=== PATIENT | female | born 1995 | race Caucasian/White ===

== ENCOUNTER 2020-12-20 14:10 | Inpatient (IN) | payer BC ==
[2020-12-20] MEDS ORDERED: ACETAMINOPHEN TAB 325 MG TAB PO PRN (15:44)
[2020-12-20] MEDS ORDERED: NALOXONE 0.4 MG/ML 1 ML VIAL IV PRN (15:44)
[2020-12-20 16:18] LABS: Basophils % (A) 0 %; Eosinophils % (A) 0 %; HCT 33.1 % (34.0-46.0); HGB 11.3 gm/dL (11.4-16.0); Lymphocytes # (A) 0.2 k/uL (1.0-4.8); Lymphocytes % (A) 10 %; MCH 30.1 pg (25.0-35.0); MCV 88.5 fL (80.0-100.0); Mean Platelet Volume 6.8; Monocytes # (A) 0.1 k/uL (0-1.0); Monocytes % (A) 3 %; Neutrophils # (A) 1.6 k/uL (1.3-7.7); Neutrophils % (A) 84 %; Platelet Count 182 k/uL (150-450); RBC 3.74 m/uL (3.80-5.40); RDW 13.3 % (11.5-15.5); WBC 1.9 k/uL (3.8-10.6)
[2020-12-20 16:32] LABS: Appearance,Urine Clear (Clear); Bacteria,Urine Rare /hpf; Bilirubin,Urine Negative (Negative); Blood,Urine Small (Negative); Color,Urine Light Yellow; Glucose,Urine (UA) Negative (Negative); Ketones,Urine Negative (Negative); Leukocyte Esterase,Urine Negative (Negative); Nitrite,Urine Negative (Negative); PH, Urine 6.5 (5.0-8.0); Protein,Urine Negative (Negative); RBC,Urine 1 /hpf (0-5); Specific Gravity,Urine 1.006 (1.001-1.035); Squamous Epithelial Cell,Urine 1 /hpf (0-4); Urobilinogen,Urine <2.0 mg/dL (<2.0); WBC,Urine <1 /hpf (0-5)
[2020-12-20 16:32] LABS: ALT 93 U/L (4-34); AST 121 U/L (14-36); African American GFR (CKD) >90 (>60 ml/min/1.73 sqM); Albumin 3.1 g/dL (3.5-5.0); Alkaline Phosphatase 75 U/L (38-126); Amylase 128 U/L (30-110); Anion Gap 5 mmol/L; Blood Urea Nitrogen 15 mg/dL (7-17); C Reactive Protein 7.2 mg/L (<10.0); Calcium 8.5 mg/dL (8.4-10.2); Carbon Dioxide 26 mmol/L (22-30); Chloride 107 mmol/L (98-107); Creatine Kinase 337 U/L (30-135); Glucose 106 mg/dL (74-99); LDH 1258 U/L (313-618); Lipase 421 U/L (23-300); Magnesium 2.2 mg/dL (1.6-2.3); Non-African American GFR(CKD) >90 (>60 ml/min/1.73 sqM); Phosphorus 4.5 mg/dL (2.5-4.5); Potassium 4.1 mmol/L (3.5-5.1); Sodium 138 mmol/L (137-145); Total Bilirubin 0.4 mg/dL (0.2-1.3); Total Protein 6.3 g/dL (6.3-8.2)
--- NOTE | 2020-12-20 16:33 | XR ---
EXAMINATION TYPE: XR chest 2V DATE OF EXAM: 12/20/2020 COMPARISON: NONE HISTORY: Fever. 7 weeks. TECHNIQUE: Frontal and lateral views of the chest are obtained. FINDINGS: There is no focal air space opacity or pneumothorax seen. Suspect small to tiny unilateral pleural effusion on lateral view . The cardiac silhouette size is within normal limits. The osseou s structures are intact. IMPRESSION: No suspicious acute infiltrate. Small to tiny unilateral suspect a left-sided pleural ef fusion.
[2020-12-20 16:42] LABS: Amphetamine Screen,Urine Not Detected (NotDetected); Barbiturate Screen,Urine Not Detected (NotDetected); Benzodiazepines Screen,Urine Not Detected (NotDetected); Cocaine Screen,Urine Not Detected (NotDetected); Methadone Screen, Urine Not Detected (NotDetected); Opiate Screen,Urine Not Detected (NotDetected); Oxycodone Screen, Urine Not Detected (NotDetected); Phencyclidine Screen,Urine Not Detected (NotDetected); Tricyclic Antidepressant,Urine Not Detected (NotDetected); Urn Cannabinoid Scrn Not Detected (NotDetected)
[2020-12-20 17:03] LABS: Erythrocyte Sedimentation Rate 56 mm/hr (0-20)
--- NOTE | 2020-12-20 17:15 | HP ---
HISTORY AND PHYSICAL DATE OF SERVICE: 12/20/2020 CHIEF COMPLAINT: Fever. HISTORY OF PRESENT ILLNESS: This 25-year-old woman with a past history of no medical problems, being followed by Dr. Palafox in the outpatient setting, apparently had a section about 7 weeks ago at [facility]. The patient apparently had mostly elective section. Patient went home after 2 days, but subsequently the patient was noted to have some fever, rigors and chills which were most pronounced for the last 2 weeks. Patient had multiple ER visits at [facility] and was diagnosed with UTI. Patient was given Bactrim initially. Subsequently the patient was given Cipro without much relief, and Dr. Palafox discussed the case at length with me and the patient was directly admitted to [facility] for further evaluation and treatment. There is no history any headache, any loss of consciousness, seizures at this time. Patient has a significant rash on the face and anterior and posterior part of the body which is more pronounced during the fever. There is no history of any arthralgia. No history of any discharge per vagina or discharge from the breast. The patient has some vague abdominal pains at this time. PAST MEDICAL HISTORY: History of section, anxiety, depression. HOME MEDICATIONS: vitamins, ibuprofen, Tylenol, Zofran, Lexapro, BuSpar, Malinda. ALLERGIES: NONE. FAMILY HISTORY: History of testicular cancer in the family. SOCIAL HISTORY: No history of smoking. No history of alcohol intake. REVIEW OF SYSTEMS: ENT: No diminished hearing. No diminished vision. CARDIOVASCULAR SYSTEM: No angina, palpitations. RESPIRATORY SYSTEM: No cough, hemoptysis. GI: As mentioned earlier. : As mentioned earlier. NERVOUS SYSTEM: No numbness, weakness. ALLERGY/IMMUNOLOGY: No asthma, hayfever. MUSCULOSKELETAL: As mentioned earlier. HEMATOLOGY/ONCOLOGY: No history of anemia. ENDOCRINE: No history of diabetes, hypothyroidism. CONSTITUTIONAL: As mentioned earlier. DERMATOLOGY: Negative. RHEUMATOLOGY: Negative. PSYCHIATRY: As mentioned earlier. PHYSICAL EXAMINATION: Patient alert and oriented x3. Pulse 82, blood pressure 110/70, respiration 18, temperature 98.1, pulse ox 94% on room air. HEENT: Conjunctivae normal. NECK: No jugular venous distention. CARDIOVASCULAR SYSTEM: S1, S2 muffled. RESPIRATORY SYSTEM: Breath sounds diminished at the bases. No rhonchi. No crackles. ABDOMEN: Soft, non-tender. No mass palpable. LEGS: No edema. No swelling. NERVOUS SYSTEM: Higher functions as mentioned earlier. Moves all 4 limbs. No focal motor or sensory deficit. LYMPHATICS: No lymph node palpable in neck, axillae or groin. SKIN: Significant rash, malar rash on the right more than the left. Maculopapular rash on the upper part of the body also present. JOINTS: No active deforming arthropathy. LABS: Labs at this time are awaited. ASSESSMENT: 1. Prolonged fever for evaluation. 2. History of recent section. 3. anxiety and depression. 4. Significant rash. Rule out lupus erythematosus or collagen vascular disorders. 5. Rule out urinary tract infection. RECOMMENDATIONS AND DISCUSSION: In this 25-year-old woman who presented with multiple complex medical issues, we will monitor the patient closely. Symptomatic treatment will be provided. I would recommend cultures and CT scans of the abdomen and pelvis to rule out the possibility of any abscess. Otherwise, infectious disease evaluation. Prognosis is guarded because of multiple complex medical issues. Further recommendations to follow. DVT prophylaxis. Discussed with the patient, who understands and agrees. A copy of this dictation is being forwarded to Dr. Palafox, who is the primary physician. MMODL / IJN: [id number] /
[2020-12-20 17:16] LABS: INR 0.9 (<1.2); Prothrombin Time 9.8 sec (9.0-12.0)
[2020-12-20] MEDS: SODIUM CHLORIDE 0.9% 1,000 ML IV SCH (17:35)
[2020-12-20] MEDS: IOPAMIDOL CONTRAST (ORAL USE) VIAL PO PRN ×2 (17:35→18:31)
--- NOTE | 2020-12-20 17:57 | US ---
EXAMINATION TYPE: US venous doppler duplex LE DATE OF EXAM: 12/20/2020 5:39 PM COMPARISON: NONE CLINICAL HISTORY: dvt. R/O DVT. Patient has weakness in bilateral legs. No hx of DVT. Patient does no t take blood thinners. SIDE PERFORMED: Bilateral TECHNIQUE: The lower extremity deep venous system is examined utilizing real time linear array sonog daiana with graded compression, doppler sonography and color-flow sonography. VESSELS IMAGED: Common Femoral Vein Deep Femoral Vein Greater Saphenous Vein * Femoral Vein Popliteal Vein Small Saphenous Vein * Proximal Calf Veins (* superficial vessels) Right Leg: No evidence of DVT in veins imaged at this time from prox calf veins to CFV/GSV. Slightly limited visibility of right mid femoral vein due to edema. Left Leg: No evidence of DVT in veins imaged at this time from prox calf veins to CFV/GSV. IMPRESSION: No evidence of deep vein thrombosis in both legs.
--- NOTE | 2020-12-20 19:45 | CT ---
EXAMINATION TYPE: CT angio chest DATE OF EXAM: 12/20/2020 COMPARISON: None HISTORY: Elevated d-dimer, post fever CT DLP: 329.77 mGycm Automated exposure control for dose reduction was used. CONTRAST: Performed with IV Contrast, patient injected with 100 mL of Isovue 370. Images were obtained from the thoracic inlet to the diaphragm with IV contrast and 3-D post processed images. Heart size is normal. There is no pericardial effusion. There is mild left pleural effusion. There is some coarsening of the interstitial markings in the lower lobes. There is mild subsegmental atelectasis left lung base. There is no evidence of a pulmonary mass. There is no mediastinal adenopathy. There are no hilar masses. There is normal contrast opacification of the pulmonary arteries. There are no filling defects. Thoracic aorta is intact. There is no aneur ysm or dissection. The bony thorax is intact. Sternum is intact. IMPRESSION: No evidence of pulmonary embolism. Mild left pleural effusion and left lower lobe interstitial infiltrate and atelectasis.
--- NOTE | 2020-12-20 19:48 | CT ---
EXAMINATION TYPE: CT brain wo con DATE OF EXAM: 12/20/2020 COMPARISON: None HISTORY: Elevated d-dimer, post fever CT DLP: 1233 mGycm Automated exposure control for dose reduction was used. Ventricles have normal size. There is no mass effect nor midline shift. There is no sign of intracran ial hemorrhage. There is no evidence of cerebral edema. The calvarium is intact. IMPRESSION: Negative unenhanced head CT scan.
--- NOTE | 2020-12-20 20:01 | CT ---
EXAMINATION TYPE: CT abdomen pelvis w con DATE OF EXAM: 12/20/2020 COMPARISON: None HISTORY: Elevated d-dimer, post fever CT DLP: 1273.98 mGycm Automated exposure control for dose reduction was used. CONTRAST: Performed with IV Contrast, patient injected with 100 mL of Isovue 370. Images obtained from the diaphragm to the floor the pelvis with oral and IV contrast. Lung bases are clear of consolidation. There is small left pleural effusion. There is some interstiti al infiltrate and atelectasis left lung base. Liver spleen stomach pancreas gallbladder appear normal. Bile ducts are not dilated. There is no adrenal mass. Kidneys show satisfactory contrast opacification. There is no hydronephrosi s. Delayed images show normal renal excretion. There is very minimal stranding around the right kidne y. There is no evidence of a renal mass. There is no retroperitoneal adenopathy. Ureters are not dila arnol. Bladder distends smoothly. There is no inguinal hernia. There is very small amount of free fluid in t he pelvis. There is no evidence of a pelvic mass. There is no mesenteric edema. There is no ascites o r free air. There is no sign of a bowel obstruction. Appendix is not definitely seen. There is no sig n of thickened appendix. IMPRESSION: Small left pleural effusion with left basilar interstitial infiltrate and atelectasis. Small amount of free fluid with low attenuation in the cul-de-sac. Appendix not seen. No sign of thickened appendix. There is some very minimal density around the lower pole of the right kidney. Kidneys show fairly nor mal enhancement. Clinical significance is not clear. Mild pyelonephritis is possible.
[2020-12-20] MEDS: busPIRone HCl 5 MG TAB PO SCH (21:18)
[2020-12-20] MEDS: HEPARIN SODIUM,PORCINE 5,000 UNIT/ML 1 ML VIAL SQ SCH (21:20)
[2020-12-20] MEDS: PANTOPRAZOLE 40 MG/10 ML VIAL IVP SCH (21:21)
--- NOTE | 2020-12-20 23:03 | CONS ---
CONSULTATION DATE OF SERVICE: 12/20/2020 REASON FOR CONSULTATION: Fever. HISTORY OF PRESENT ILLNESS: The patient is a 25-year-old female who is status post about 7 weeks ago at [facility]. The patient apparently did well; however, 2 weeks ago the patient started having fever with chills, for which the patient went to [facility]. The patient was diagnosed with a UTI and has been treated with Bactrim DS; however, the patient was unable to keep it, as she did have significant nausea and vomiting with it. Subsequently the patient went back to the ER. At this time the patient was switched over to oral Cipro. The patient seemed to have persistent symptoms and has been mostly not feeling well, fever, body aches. No significant URI symptoms. No chest pain or shortness of breath with minimal cough. No sputum production. Denies any abdominal pain and no diarrhea. The patient subsequently has been admitted to the hospital by request of the primary care physician for further workup. The patient has been afebrile since the patient has been admitted to the hospital. She is currently 99% on room air. The patient did have leukopenia and lymphopenia. D-dimer was elevated. Liver enzymes were elevated as well as LDH. CRP was normal. Amylase and lipase have been elevated. Urine came back negative. Urine drug screen was negative. The patient did have a CT angiogram of the chest that was negative for PE. It did show mild left pleural effusion and left lower lobe interstitial infiltrate and atelectasis. The patient also had a CT of abdomen and pelvis showing small pleural effusion, left basilar atelectasis, small amount of free fluid with the patient has been admitted to the hospital. Infectious Disease was consulted for further management regarding her fever. REVIEW OF SYSTEMS: Positive points have been mentioned in the HPI. Rest of the systems are negative. PAST MEDICAL HISTORY: Anxiety, depression. PAST SURGICAL HISTORY: . SOCIAL HISTORY: The patient denies smoking, drinking or drug use. FAMILY HISTORY: Testicular cancer in the family. ALLERGIES: NO KNOWN DRUG ALLERGIES. MEDICATIONS: The patient is currently on Tylenol, BuSpar, Lexapro, heparin, Narcan, Protonix. PHYSICAL EXAMINATION: On examination, her blood pressure is 121/72 with a pulse of 97, temperature 98.4. She is 99% on room air. General description is a young female lying in bed in no distress. No tachypnea or accessory muscle of respiration use. HEENT: Examination shows slight pallor. No scleral icterus. Oral mucous membrane is moist. NECK: Trachea is central. No thyromegaly. LUNGS: Unlabored breathing. Clear to auscultation anteriorly. No wheeze or crackle. HEART: S1, S2. Regular rate and rhythm. ABDOMEN: Soft. No tenderness. No guarding or rigidity. No CVA tenderness. EXTREMITIES: No edema of the feet. SKIN EXAMINATION: No rash or mass palpable. Neurologically the patient is awake, alert, oriented x3. Mood and affect normal. LABS: Hemoglobin is 11.3, white count 1.9. Sedimentation rate of 56. D-dimer was elevated. Liver enzymes are elevated as well as inflammatory markers, though CRP is normal. Amylase and lipase slightly elevated. DIAGNOSTIC IMPRESSION AND PLAN: Patient admitted to hospital with fever and weakness, and this patient has been treated in the outpatient setting for a urinary tract infection with Bactrim followed by [facility], with persistent GI symptoms in this patient currently with no intraabdominal abnormality as per CT of abdomen and pelvis. The patient does not have any tenderness. She did have some evidence of left lower lobe infiltrate/atelectasis with concern for possible viral versus bacterial pneumonia. PLAN: 1. We will check influenza A/B PCR as well as coronavirus PCR. 2. Empirically add Levaquin 750 mg p.o. daily. 3. We will follow her clinical condition and culture to further adjust medication if needed. Thank you for this consultation. Will follow this patient along with you. MMODL / IJN: [id number] /
[2020-12-21 01:49] LABS: Anti-DNA, DS unit >300.0 IU/mL; Anti-Smith Ab Interp NEGATIVE (NEGATIVE); DNA Double-Stranded POSITIVE (NEGATIVE)
[2020-12-21 06:26] LABS: Rheumatoid Factor, Qnt 6 IU/mL (0-15)
[2020-12-21 06:37] LABS: Ferritin 537.7 ng/mL (10.0-291.0)
--- NOTE | 2020-12-21 07:34 | US ---
EXAMINATION TYPE: US gallbladder DATE OF EXAM: 12/21/2020 COMPARISON: NONE CLINICAL HISTORY: cholecystitis. EXAM MEASUREMENTS: Liver Length: 13.8 cm Gallbladder Wall: 0.2 cm CBD: 0.4 cm Right Kidney: 11.8 x 4.5 x 6.1 cm Pancreas: wnl Liver: wnl Gallbladder: No stones seen Evidence for sonographic Sherman's sign: Yes CBD: wnl Right Kidney: No hydronephrosis or masses seen IMPRESSION: No distinct abnormality seen.
[2020-12-21 07:59] LABS: Basophils % (A) 0 %; Eosinophils % (A) 1 %; HCT 32.7 % (34.0-46.0); HGB 11.1 gm/dL (11.4-16.0); Lymphocytes # (A) 0.2 k/uL (1.0-4.8); Lymphocytes % (A) 9 %; MCH 29.8 pg (25.0-35.0); MCHC 33.9 g/dL (31.0-37.0); Mean Platelet Volume 6.7; Monocytes # (A) 0.1 k/uL (0-1.0); Monocytes % (A) 4 %; Neutrophils % (A) 85 %; Platelet Count 170 k/uL (150-450); RBC 3.71 m/uL (3.80-5.40); RDW 13.4 % (11.5-15.5); WBC 2.4 k/uL (3.8-10.6)
[2020-12-21] MEDS: PRENATAL VIT-IRON-FOLIC ACID 1 EACH CAP PO SCH (07:59)
[2020-12-21] MEDS: busPIRone HCl 5 MG TAB PO SCH ×2 (07:59→20:29)
[2020-12-21] MEDS: ESCITALOPRAM 5 MG TAB PO SCH (07:59)
[2020-12-21] MEDS: HEPARIN SODIUM,PORCINE 5,000 UNIT/ML 1 ML VIAL SQ SCH ×2 (07:59→20:30)
[2020-12-21] MEDS: PANTOPRAZOLE 40 MG/10 ML VIAL IVP SCH ×2 (08:00→20:30)
[2020-12-21 08:21] LABS: African American GFR (CKD) >90 (>60 ml/min/1.73 sqM); Amylase 127 U/L (30-110); Anion Gap 3 mmol/L; Blood Urea Nitrogen 13 mg/dL (7-17); Calcium 8.2 mg/dL (8.4-10.2); Carbon Dioxide 26 mmol/L (22-30); Chloride 107 mmol/L (98-107); Cholesterol 96 mg/dL (<200); Glucose 106 mg/dL (74-99); HDL Cholesterol 25 mg/dL (40-60); LDL Cholesterol,Calculated 35 mg/dL (0-99); Lipase 470 U/L (23-300); Non-African American GFR(CKD) >90 (>60 ml/min/1.73 sqM); Potassium 4.4 mmol/L (3.5-5.1); Sodium 136 mmol/L (137-145); Triglycerides 180 mg/dL (<150)
[2020-12-21 08:53] LABS: Albumin 2.8 g/dL (3.5-5.0); Bilirubin, Delta 0.3 mg/dL (0.0-0.2); Bilirubin,Unconjugated 0.2 mg/dL (0.0-1.1); Total Bilirubin 0.5 mg/dL (0.2-1.3); Total Protein 5.8 g/dL (6.3-8.2)
[2020-12-21] MEDS: ONDANSETRON 4 MG/2 ML VIAL IVP PRN ×2 (10:35→16:30)
--- NOTE | 2020-12-21 12:00 | ECHOF ---
Referral Reason: MEASUREMENTS -------- HEIGHT: 160.0 cm WEIGHT: 79.8 kg BP: RVIDd: 2.4 cm (< 3.3) IVSd: 0.9 cm (0.6 - 1.1) LVIDd: 4.7 cm (3.9 - 5.3) LVPWd: 0.9 cm (0.6 - 1.1) IVSs: 1.4 cm LVIDs: 3.1 cm LVPWs: 1.5 cm LAESV Index (A-L): 23.68 ml/m Ao Diam: 2.4 cm (2.0 - 3.7) AV Cusp: 1.8 cm (1.5 - 2.6) LA Diam: 2.8 cm (2.7 - 3.8) MV EXCURSION: 18.450 mm (> 18.000) MV EF SLOPE: 92 mm/s (70 - 150) EPSS: 0.4 cm MV E Jose: 0.91 m/s MV DecT: 143 ms MV A Jose: 0.62 m/s MV E/A Ratio: 1.47 RAP: 5.00 mmHg RVSP: 23.55 mmHg FINDINGS -------- This was a technically good study. The left ventricular size is normal. Left ventricular wall thickness is normal. Overall left vent ricular systolic function is low-normal with, an EF between 50 - 55 %. The diastolic filling patter n is normal for the age of the patient 11.18. The right ventricle is normal in size. The left atrial size is normal. Normal LA size by volume 22+/-6 ml/m2. The right atrial size is normal. Interatrial and interventricular septum intact. The aortic valve is trileaflet and appears structurally normal. The mitral valve is normal. Mild mitral regurgitation is present. The tricuspid valve appears structurally normal. Trace tricuspid regurgitation present. Right josue tricular systolic pressure is normal at < 35 mmHg. There is no pulmonic regurgitation present. The aortic root size is normal. Normal inferior vena cava with normal inspiratory collapse consistent with estimated right atrial pre ssure of 5 mmHg. There is a trivial pericardial effusion present. CONCLUSIONS -------- 1. The left ventricular size is normal. 2. Left ventricular wall thickness is normal. 3. Overall left ventricular systolic function is low-normal with, an EF between 50 - 55 %. 4. The diastolic filling pattern is normal for the age of the patient 11.18 5. Mild mitral regurgitation is present. 6. Trace tricuspid regurgitation present. 7. There is a trivial pericardial effusion present. PRINCIPAL PROGRAMMER: Cande Peterson RDCS
[2020-12-21] MEDS: SODIUM CHLORIDE 0.9% 1,000 ML IV SCH ×2 (13:12→20:29)
--- NOTE | 2020-12-21 13:24 | PN ---
PROGRESS NOTE DATE OF SERVICE: 12/21/2020 This 25-year-old woman who was admitted with fever in post is being closely monitored at this time. The patient had extensive evaluation including CAT scan of the brain, chest CTA, which showed only small left pleural effusion with left bases interstitial infiltrate or atelectasis. The patient also had features of pancreatitis. As far as her labs are concerned, the patient had inflammatory markers and as well as positive SANIA and as well as double-stranded DNA, anti-[place] antibody was only 0.6, anti DNA antibody was more than 300. Influenza is negative. PAST MEDICAL HISTORY: Reviewed. REVIEW OF SYSTEMS: CARDIOVASCULAR SYSTEM: No angina. RESPIRATORY SYSTEM: As mentioned earlier. GI: As mentioned earlier. : No dysuria. NERVOUS SYSTEM: No numbness or weakness. CURRENT MEDICATIONS: Current medications are reviewed and include: Tylenol. BuSpar, Lexapro, heparin, vitamins, Narcan, Zofran, Protonix. PHYSICAL EXAMINATION: The patient is , Pulse 94, blood pressure 114/74, respirations 16, temperature 98.2, pulse ox 94% on room air. HEENT: Conjunctivae normal. NECK: No jugular venous distention. CARDIOVASCULAR: S1, S2 muffled. RESPIRATORY: Breath sounds diminished at the bases. A few scattered rhonchi and crackles. ABDOMEN: Soft. Mild diffuse discomfort on palpation. LEGS: No edema, no swelling. NERVOUS SYSTEM: No focal deficits. LABS: WBC 2.4, hemoglobin 11.1, and lymphocytes 0.2. Sodium is 136. Other labs are noted. ASSESSMENT: 1. Fever along with possible lupus erythematosus. 2. History of recent section. 3. Acute pancreatitis. 4. Neutropenia and leukopenia. 5. Anemia, normocytic anemia of chronic disease. 6. Hyponatremia. 7. Elevated AST, ALT, acute hepatitis of undetermined etiology. 8. Elevated LDH and creatine kinase. 9. Mild hypoalbuminemia. 10.Elevated amylase and lipase. 11.Elevated procalcitonin. 12.FULL CODE. RECOMMENDATIONS AND DISCUSSION: This 25-year-old woman presented with multiple complex medical issues, we will monitor the patient closely, continue the current medications, continue symptomatic treatment. I recommend continue with empiric antibiotics. Cultures are pending at this time. I also recommend monitor the amylase and lipase closely and also gastroenterology consultation. I would also recommend IgG subclass and symptomatic treatment. Continue with Protonix and as well as Rheumatology consultation with Dr. Menendez. Guarded prognosis. Further recommendations to follow. MMODL / IJN: [id number] /
--- NOTE | 2020-12-21 15:24 | PN ---
PROGRESS NOTE DATE OF SERVICE: 12/21/2020 REASON FOR FOLLOWUP: Fever. INTERVAL HISTORY: The patient is currently afebrile. No fever has been recorded since admission. The patient is breathing comfortably apparently on room air. The patient denies having any chest pain or shortness of breath or cough. No nausea, no vomiting. No abdominal pain, no diarrhea. PHYSICAL EXAMINATION: Blood pressure 114/74 with pulse of 94, temperature 98.2. General description is a young female lying in bed in no distress. HEENT: Examination shows slight pallor. No scleral icterus. Oral mucous membrane is dry. NECK: Trachea central. No thyromegaly. LUNGS: Unlabored breathing, clear to auscultation anteriorly. HEART: S1, S2. Regular rate and rhythm. ABDOMEN: Soft, no tenderness EXTREMITIES: No edema of feet. LABS: Hemoglobin 11.1, white count 2.4. BUN of 13, creatinine 0.80. Influenza and barrera PCR have been negative. SANIA screen was positive. Urine drug screen was negative. DIAGNOSTIC IMPRESSION AND PLAN: Patient admitted to the hospital with fever; however, no fever has been recorded. The patient did have extensive workup including CT of abdomen and pelvis, CT angiogram of the chest and ultrasound of the abdomen, all of them have been negative. The patient has no fever. Culture negative. Currently managed off antibiotic therapy. Continue with supportive care. MMODL / IJN: [id number] /
[2020-12-21 16:04] LABS: ANA Pattern Homogeneous
--- NOTE | 2020-12-21 17:51 | CONS ---
CONSULTATION DATE OF DICTATION: 12/21/2020 REASON FOR CONSULTATION: Elevated lipase. HISTORY OF PRESENT ILLNESS: The patient is a 25-year-old pleasant white female who is approximately 8 weeks' . She was admitted to the hospital because of low-grade fever and chills on and off for the last 3-4 weeks' duration. Symptoms continued to progressively get worse. She went to the emergency room at [facility] and was diagnosed with UTI and was treated initially with Bactrim and subsequently with Levaquin and subsequently with Cipro, despite which she continued to remain symptomatic. She went and saw Dr. Palafox on an outpatient basis and was directly admitted to [facility] for further evaluation. At the time of admission to the hospital she was noted to have mild elevation of lipase, and hence we are consulted for possible pancreatitis. The patient, however, denies any abdominal pain. She has occasional left lower quadrant abdominal pain on and off for the last several weeks' duration. She reports no nausea, vomiting. No prior history of pancreatitis in the past. No history of alcohol use. She continues to have low-grade fever. She noticed some malar rash on her face about a week ago. She also has been complaining of some arthralgias in the upper extremities. Overall fatigue, weakness, tiredness, but no significant weight loss. PAST MEDICAL HISTORY: Significant for anxiety and depression. MEDICATIONS: Medications at home include vitamins, ibuprofen, Tylenol, Zofran, Lexapro, BuSpar. ALLERGIES: NONE. SOCIAL HISTORY: No smoking. No alcohol use. FAMILY HISTORY: Grandmother had acute pancreatitis. REVIEW OF SYSTEMS: CARDIOPULMONARY: No chest pain or shortness of breath. GENITOURINARY: No dysuria. No hematuria. MUSCULOSKELETAL: Some arthralgias and myalgias as described above. CONSTITUTIONAL: Fatigue and weakness. No weight loss. Low-grade fever. NEUROLOGY: Unremarkable. PSYCHIATRY: History of anxiety and depression. ENDOCRINE: Unremarkable. HEMATOLOGY: Unremarkable. DERMATOLOGY: Unremarkable. PHYSICAL EXAMINATION: She appears comfortable. No apparent distress. Vital signs are stable. Blood pressure is 112/82, pulse rate 86 and afebrile. HEENT examination unremarkable. Conjunctivae pink. Sclerae anicteric. Oral cavity no lesions. NECK: No JVD or lymph node enlargement. CHEST: Clear to auscultation. HEART: Regular rate and rhythm. ABDOMEN: Soft. It was non-tender, non-distended. Bowel sounds are positive. No organomegaly. EXTREMITIES: No pedal edema. SKIN: Slight malar rash on the face. NEUROLOGIC: Alert and oriented x3. No focal deficits. LABS: Lab done at the time of admission to the hospital showed WBC 1.9, hemoglobin 11.3, platelets normal at 182. Today repeat WBC is 2.4, hemoglobin 11.1. PT and INR within normal limits. Basic metabolic panel is normal. BUN and creatinine are normal. Ferritin is 537. AST and ALT are 121 and 93, respectively. T-bilirubin and alkaline phosphatase are within normal limits. Amylase is 128 and lipase is 421. Repeat labs today: AST and ALT are 140 and 100, respectively. T-bilirubin and alkaline phosphatase are normal. Lipase is 470. Amylase is 127. CRP 7.2. SANIA positive. Coronavirus PCR is negative. IMPRESSION: This is a lady who presented with low-grade fever for the last few weeks' duration associated with some fatigue, weakness, arthralgias, not feeling well since her C- section about 7 weeks ago. She is noted to have mild elevation of lipase but clinically no evidence of pancreatitis. She did have a CT of the abdomen and pelvis done in the ER that showed normal-appearing pancreas. There is evidence of some small pleural effusion. Gallbladder appeared normal. Ultrasound also was done. Ultrasound of the gallbladder showed no evidence of stones, no biliary ductal dilation. Liver appears to be within normal limits. She is also noted to have mild elevation of serum transaminases and was noted to have a positive SANIA. She developed some malar rash about 2 weeks ago on her face. The elevation of lipase is most likely nonspecific in nature, and clinically no evidence of acute pancreatitis based on the clinical signs and symptoms and imaging studies. Possibility of connective tissue disorder needs to be considered. In regard to the elevated serum transaminases, we will obtain hepatitis serologies for A, B and C. we will monitor them closely. RECOMMENDATIONS: 1. Agree with rheumatology consultation with Dr. Menendez. 2. Will obtain hepatitis serologies for A, B and C. 3. Monitor LFTs closely. 4. Continue with symptomatic and supportive care. 5. Will follow with you closely. Thank you for this consultation. MMODL / JUSTAN: [id number] /
[2020-12-22] MEDS: SODIUM CHLORIDE 0.9% 1,000 ML IV SCH ×3 (01:43→14:20)
[2020-12-22 03:32] LABS: Hepatitis A Antibody IgM Non-Reactive (Non-Reactive); Hepatitis B Core IgM Non-Reactive (Non-Reactive); Hepatitis B Surface Antigen Non-Reactive (Non-Reactive); Hepatitis C IgG Antibody Non-Reactive (Non-Reactive)
[2020-12-22 05:41] LABS: Basophils % (A) 0 %; Eosinophils % (A) 0 %; HCT 30.9 % (34.0-46.0); HGB 10.5 gm/dL (11.4-16.0); Lymphocytes # (A) 0.3 k/uL (1.0-4.8); Lymphocytes % (A) 16 %; MCH 30.2 pg (25.0-35.0); MCHC 33.9 g/dL (31.0-37.0); MCV 89.2 fL (80.0-100.0); Mean Platelet Volume 6.8; Monocytes # (A) 0.1 k/uL (0-1.0); Monocytes % (A) 3 %; Neutrophils # (A) 1.3 k/uL (1.3-7.7); Neutrophils % (A) 78 %; Platelet Count 161 k/uL (150-450); RBC 3.46 m/uL (3.80-5.40); RDW 13.7 % (11.5-15.5); WBC 1.6 k/uL (3.8-10.6)
[2020-12-22 05:53] LABS: African American GFR (CKD) >90 (>60 ml/min/1.73 sqM); Amylase 139 U/L (30-110); Anion Gap 4 mmol/L; Blood Urea Nitrogen 13 mg/dL (7-17); Calcium 7.6 mg/dL (8.4-10.2); Carbon Dioxide 24 mmol/L (22-30); Chloride 110 mmol/L (98-107); Glucose 87 mg/dL (74-99); Lipase 514 U/L (23-300); Non-African American GFR(CKD) >90 (>60 ml/min/1.73 sqM); Potassium 4.2 mmol/L (3.5-5.1); Sodium 138 mmol/L (137-145)
[2020-12-22] MEDS: ONDANSETRON 4 MG/2 ML VIAL IVP PRN ×2 (06:24→19:39)
[2020-12-22] MEDS: ESCITALOPRAM 5 MG TAB PO SCH (08:18)
[2020-12-22] MEDS: PRENATAL VIT-IRON-FOLIC ACID 1 EACH CAP PO SCH (08:18)
[2020-12-22] MEDS: busPIRone HCl 5 MG TAB PO SCH ×2 (08:19→20:32)
[2020-12-22] MEDS: PANTOPRAZOLE 40 MG/10 ML VIAL IVP SCH ×2 (08:19→20:32)
[2020-12-22] MEDS: HEPARIN SODIUM,PORCINE 5,000 UNIT/ML 1 ML VIAL SQ SCH ×2 (10:43→20:32)
--- NOTE | 2020-12-22 18:25 | PN ---
PROGRESS NOTE DATE OF SERVICE: 12/22/2020 This 25 -year-old woman admitted with recurrent fever and , is being evaluated for the cause of fever. The cultures are negative so far. The patient also had features of acute pancreatitis. Patient had some mild rash. SANIA was extremely elevated and the possibility of lupus or disorder is being considered. Anti DNA is positive, but anti [place] antibody is negative and Dr. Menendez's evaluation in progress. The patient being closely monitored. Ultrasound of the abdomen showed no acute abnormalities. Patient being followed by Dr. Palafox in the outpatient setting. Past medical history is reviewed. REVIEW OF SYSTEMS: CARDIOVASCULAR SYSTEM: No angina. RESPIRATION as mentioned earlier. GI: As mentioned earlier. : No dysuria. NERVOUS SYSTEM: No numbness or weakness. CURRENT MEDICATIONS: Reviewed and include: Tylenol. BuSpar, Lexapro, heparin, Zofran and Protonix. PHYSICAL EXAM: Patient is alert, oriented x2. Pulse is 90. Blood pressure 116/72, respiration 18, temperature 98 degrees, pulse ox 98% on room air. HEENT: Conjunctivae normal. NECK: No JVD. CARDIOVASCULAR: S1, S2 muffled. RESPIRATORY SYSTEM: Breath sounds diminished at the bases. No rhonchi. No crackles. ABDOMEN: Soft, nontender. No mass palpable. LEGS are no edema. No swelling. NERVOUS SYSTEM: No focal deficits. LABS: WBC 11.3, hemoglobin 10.5, sodium 138, potassium 4.2, amylase 139, lipase is 514. ASSESSMENT: 1. Fever along with rash with possibly lupus erythematosus. 2. History of recent section. 3. Possible acute pancreatitis. 4. Neutropenia and leukopenia. 5. Anemia, normocytic anemia of chronic disease. 6. Hyponatremia. 7. Elevated AST/ALT, acute hepatitis of undetermined etiology. 8. Elevated LDH and creatinine kinase. 9. Mild hypoalbuminemia. 10.Elevated amylase lipase. 11.Elevated procalcitonin. 12.FULL CODE. RECOMMENDATIONS AND DISCUSSION: Recommend to continue current medications, and await dermatology evaluation. Repeat labs. I would repeat amylase, lipase, IgG subclass also requested. Guarded prognosis because of multiple complex medical issues. Further recommendations to follow. MMODL / IJN: [id number] / SHAE
--- NOTE | 2020-12-22 19:45 | PN ---
PROGRESS NOTE DATE OF SERVICE: 12/22/2020 REASON FOR FOLLOWUP: Fever. INTERVAL HISTORY: The patient is currently afebrile. The patient is breathing comfortably. Denies having any chest pain or shortness of breath. Minimal cough. No nausea. No abdominal pain or diarrhea. PHYSICAL EXAMINATION: Blood pressure 116/72 with a pulse of 90, temperature 98. She is 95% on room air. General description is a middle-aged female lying in bed in no distress. Respiratory system: Unlabored breathing, clear to auscultation anteriorly. Heart S1, S2. Regular rate and rhythm. Abdomen soft, no tenderness. LABS: Hemoglobin is 10.5, white count 8.6, BUN of 13, creatinine 0.84. DIAGNOSTIC IMPRESSION AND PLAN: Patient admitted to the hospital with fever with recent outpatient treatment for urinary tract infection with Cipro and Bactrim. However, urine has been negative. Culture has been negative and the patient has been managed and observed closely off antibiotic therapy. MMODL / IJN: [id number] /
[2020-12-22] MEDS ORDERED: IBUPROFEN 600 MG TAB PO PRN (21:43)
[2020-12-23] MEDS: ONDANSETRON 4 MG/2 ML VIAL IVP PRN (02:08)
[2020-12-23] MEDS: SODIUM CHLORIDE 0.9% 1,000 ML IV SCH ×2 (05:30→23:47)
[2020-12-23 05:46] LABS: Basophils % (A) 0 %; Eosinophils % (A) 0 %; HCT 31.7 % (34.0-46.0); HGB 10.7 gm/dL (11.4-16.0); Lymphocytes # (A) 0.2 k/uL (1.0-4.8); Lymphocytes % (A) 13 %; MCH 30.1 pg (25.0-35.0); MCHC 33.8 g/dL (31.0-37.0); Mean Platelet Volume 6.7; Monocytes # (A) 0.1 k/uL (0-1.0); Monocytes % (A) 4 %; Neutrophils # (A) 1.4 k/uL (1.3-7.7); Neutrophils % (A) 81 %; Platelet Count 140 k/uL (150-450); RBC 3.56 m/uL (3.80-5.40); RDW 13.6 % (11.5-15.5); WBC 1.7 k/uL (3.8-10.6)
[2020-12-23] MEDS ORDERED: METOCLOPRAMIDE 5 MG/ML 2 ML VIAL IVP STA (05:54)
[2020-12-23 05:56] LABS: African American GFR (CKD) >90 (>60 ml/min/1.73 sqM); Amylase 167 U/L (30-110); Anion Gap 0 mmol/L; Blood Urea Nitrogen 13 mg/dL (7-17); Calcium 7.9 mg/dL (8.4-10.2); Carbon Dioxide 25 mmol/L (22-30); Chloride 112 mmol/L (98-107); Glucose 93 mg/dL (74-99); Lipase 635 U/L (23-300); Non-African American GFR(CKD) >90 (>60 ml/min/1.73 sqM); Potassium 4.2 mmol/L (3.5-5.1); Sodium 137 mmol/L (137-145)
[2020-12-23] MEDS: PANTOPRAZOLE 40 MG/10 ML VIAL IVP SCH ×2 (08:02→20:52)
[2020-12-23] MEDS: busPIRone HCl 5 MG TAB PO SCH ×2 (09:32→20:52)
[2020-12-23] MEDS: ESCITALOPRAM 5 MG TAB PO SCH (09:32)
[2020-12-23] MEDS: PRENATAL VIT-IRON-FOLIC ACID 1 EACH CAP PO SCH (09:32)
--- NOTE | 2020-12-23 09:35 | P.PN ---
Subjective Progress Note Date: 12/22/20 Principal diagnosis: Elevated liver enzymes Patient is seen lying in bed reporting any further vomiting. No abdominal pain and asking for diet. Objective - Vital Signs Vital signs: Vital Signs Temp 98.4 F 12/22/20 08:14 Pulse 89 12/22/20 08:14 Resp 18 12/22/20 08:14 BP 109/74 12/22/20 08:14 Pulse Ox 95 12/22/20 08:14 Intake & Output 12/21/20 12/22/20 12/22/20 18:59 06:59 18:59 Intake Total 2069 1999 Output Total 20 Balance 2049 1999 Intake: Intake, IV Titration 1050 2000 Amount Sodium Chloride 0.9% 1, 1050 1999 000 ml @ 150 mls/hr IV . Q6H40M [facility] Rx#:[id number] Oral 1020 Output: Emesis 20 Other: # Voids 2 3 1 # Bowel Movements 3 - Exam On physical examination, patient appears comfortable in no apparent distress. HEAD: Normocephalic, atraumatic. EYES: No scleral icterus. No conjunctival injection. MOUTH: No lesions, tongue midline. NECK: Trachea midline, no gross abnormalities. ABDOMEN: Soft, obese. Bowel sounds are positive. No organomegaly. No guarding or rigidity. EXTREMITIES: No pedal edema. SKIN: No rashes, no jaundice, malar rash noted. NEUROLOGIC: Alert and oriented x3. No focal deficits. - Labs CBC & Chem 7: 12/23/20 05:28 12/23/20 05:28 Labs: Abnormal Lab Results - Last 24 Hours (Table) 12/22/20 12/22/20 Range/Units 04:53 04:53 WBC 1.6 L (3.8-10.6) k/uL RBC 3.46 L (3.80-5.40) m/uL Hgb 10.5 L (11.4-16.0) gm/dL Hct 30.9 L (34.0-46.0) % Lymphocytes # 0.3 L (1.0-4.8) k/uL Chloride 110 H (98-107) mmol/L Calcium 7.6 L (8.4-10.2) mg/dL Amylase 139 H (30-110) U/L Lipase 514 H (23-300) U/L Microbiology - Last 24 Hours (Table) 02/04/21 16:20 Urine Culture - Final Urine,Clean Catch 12/20/20 15:59 Blood Culture - Preliminary Blood No Growth after 24 hours Assessment and Plan (1) Elevated liver enzymes Narrative/Plan: 25-year-old female presenting for symptoms of fatigue, weakness, arthralgias and low-grade fevers. Mild elevation in lipase on presentation however computed tomography scan of the abdomen with no findings suggestive of pancreatitis. Patient had mild elevation in liver enzymes predominantly in a hepatocellular pattern with negative testing for acute viral hepatitis. Patient does have a positive antibody testing for lupus with consult placed for rheumatology. Current Visit: Yes Status: Acute Code(s): R74.8 - ABNORMAL LEVELS OF OTHER SERUM ENZYMES SNOMED Code(s): 249726163 Plan: Supportive care Okay for liquid diet, advance as tolerated Continue antiemetic therapy as needed Continue monitor CBC, BMP and LFTs Acute viral hepatitis panel negative Suspicion is for elevation in liver enzymes secondary to underlying autoimmune disease, we'll continue to monitor, if liver enzymes continue to rise will order full serology Computed tomography scan of the abdomen reviewed Thank you for allowing us to participate in the care of the patient
[2020-12-23] MEDS: HEPARIN SODIUM,PORCINE 5,000 UNIT/ML 1 ML VIAL SQ SCH ×2 (11:19→20:52)
[2020-12-23] MEDS: methylPREDNISolone SOD SUCCI 125 MG/2 ML VIAL IV SCH ×3 (15:41→23:47)
--- NOTE | 2020-12-23 16:44 | PN ---
PROGRESS NOTE DATE OF SERVICE: 12/23/2020 This 25-year-old woman who was admitted with significant fever, also had mild rash. The patient had multiple abnormal laboratory panel, including elevated SANIA with DS-DNA antibody positive also. Dr. Menendez was consulted. The patient being closely monitored at this time. Patient is also on empiric antibiotics previously but the cultures are negative so far. Multiple consultants are following the patient closely. PAST MEDICAL HISTORY: Reviewed. REVIEW OF SYSTEMS: Cardiovascular system: No angina or palpitations. Respiratory as mentioned earlier. GI: As mentioned earlier. no dysuria. Musculoskeletal as mentioned earlier. CURRENT MEDICATIONS: Reviewed and include: Tylenol, Buspar, Lexapro, heparin, Motrin, Narcan, Zofran and Protonix. PHYSICAL EXAM: Patient is alert, oriented x3. Pulse 80. Blood pressure 108/70, respirations 16, temperature 97.7, pulse ox 94% on room air. HEENT: Conjunctivae normal. NECK: No JVD. CARDIOVASCULAR: S1, S2. RESPIRATORY SYSTEM: Breath sounds diminished at the bases. No rhonchi. No crackles. ABDOMEN: Soft, nontender. LEGS are no edema, no swelling. NERVOUS SYSTEM: No focal deficits. LAB STUDIES: WBC 1.7, hemoglobin 10.7, platelets are 140 and amylase is 167. Lipase 635. The lipid panel not available. ASSESSMENT: 1. Fever along with a rash with possible lupus erythematosus. 2. History of recent section. 3. Possible acute pancreatitis. 4. Neutropenia and leukopenia. 5. Anemia, normocytic anemia of chronic disease. 6. Mild thrombocytopenia. 7. Hyponatremia. 8. Elevated AST/ALT, acute hepatitis of undetermined etiology. 9. Elevated creatinine kinase. 10.Mild hypoalbuminemia. 11.Elevated amylase and lipase. 12.Elevated procalcitonin. 13.FULL CODE. RECOMMENDATIONS AND DISCUSSION: Recommend to continue current medications, monitoring and symptomatic treatment. Discussed with Dr. Menendez, who will see the patient in consultation for possible IV steroids. Guarded prognosis. Further recommendations to follow. MMODL / IJN: [id number] /
--- NOTE | 2020-12-23 16:47 | P.PN ---
Subjective Progress Note Date: 12/23/20 Principal diagnosis: Elevated liver enzymes Patient is seen sitting bedside. She tolerated a liquid diet. Some nausea this morning. No vomiting reported. Objective - Vital Signs Vital signs: Vital Signs Temp 97.7 F 12/23/20 08:14 Pulse 80 12/23/20 08:14 Resp 16 12/23/20 08:14 BP 108/71 12/23/20 08:14 Pulse Ox 95 12/23/20 08:14 Intake & Output 12/22/20 12/23/20 12/23/20 18:59 06:59 18:59 Intake Total 180 Balance 180 Intake: Oral 180 Other: Voiding Method Toilet # Voids 1 2 1 # Bowel Movements 1 - Exam On physical examination, patient appears comfortable in no apparent distress. HEAD: Normocephalic, atraumatic. EYES: No scleral icterus. No conjunctival injection. MOUTH: No lesions, tongue midline. NECK: Trachea midline, no gross abnormalities. ABDOMEN: Soft, obese. Bowel sounds are positive. No organomegaly. No guarding or rigidity. EXTREMITIES: No pedal edema. SKIN: No rashes, no jaundice, malar rash noted. NEUROLOGIC: Alert and oriented x3. No focal deficits. - Labs CBC & Chem 7: 12/23/20 05:28 12/23/20 05:28 Labs: Abnormal Lab Results - Last 24 Hours (Table) 12/23/20 12/23/20 Range/Units 05:28 05:28 WBC 1.7 L (3.8-10.6) k/uL RBC 3.56 L (3.80-5.40) m/uL Hgb 10.7 L (11.4-16.0) gm/dL Hct 31.7 L (34.0-46.0) % Plt Count 140 L (150-450) k/uL Lymphocytes # 0.2 L (1.0-4.8) k/uL Chloride 112 H (98-107) mmol/L Calcium 7.9 L (8.4-10.2) mg/dL Amylase 167 H (30-110) U/L Lipase 635 H (23-300) U/L Microbiology - Last 24 Hours (Table) 12/20/20 15:59 Blood Culture - Preliminary Blood No Growth after 48 hours Assessment and Plan (1) Elevated liver enzymes Narrative/Plan: 25-year-old female presenting for symptoms of fatigue, weakness, arthralgias and low-grade fevers. Mild elevation in lipase on presentation however computed tomography scan of the abdomen with no findings suggestive of pancreatitis. Patient had mild elevation in liver enzymes predominantly in a hepatocellular pattern with negative testing for acute viral hepatitis. Patient does have a positive antibody testing for lupus with consult placed for rheumatology. Current Visit: Yes Status: Acute Code(s): R74.8 - ABNORMAL LEVELS OF OTHER SERUM ENZYMES SNOMED Code(s): 530342303 Plan: Supportive care Okay for liquid diet, advance as tolerated Continue antiemetic therapy as needed Continue monitor CBC, BMP and LFTs Acute viral hepatitis panel negative Suspicion is for elevation in liver enzymes secondary to underlying autoimmune disease, we'll continue to monitor, full liver serology was ordered Computed tomography scan of the abdomen reviewed Thank you for allowing us to participate in the care of the patient
--- NOTE | 2020-12-23 23:56 | PN ---
PROGRESS NOTE DATE OF SERVICE: 12/22/2020 REASON FOR FOLLOWUP: Fever. INTERVAL HISTORY: The patient did spike a low-grade fever of 100.2 last night. I was not notified. As of this morning, the patient is afebrile. The patient denies having any chest pain, shortness of breath or cough. No abdominal pain. No diarrhea. PHYSICAL EXAMINATION: Blood pressure 117/78 with a pulse of 77. Temperature 98.4. She is 96% on room air. General description: The patient is a middle-aged female lying in bed in no distress. Respiratory system: Unlabored breathing. Clear to auscultation anteriorly. Heart S1, S2. Regular rate and rhythm. Abdomen soft, no tenderness. LABS: Hemoglobin is 10.7, white count 11.7, BUN of 13, creatinine 0.76. Hepatitis panel came back negative. DIAGNOSTIC IMPRESSION AND PLAN: Patient admitted to the hospital with fever. No obvious focus of infection. The patient cultures have been negative. Neurologic workup is in progress. If the patient spikes any fever of 100.4, blood cultures will be repeated and the patient monitored closely. Continue supportive care. MMODL / IJN: [id number] /
[2020-12-24] MEDS: ONDANSETRON 4 MG/2 ML VIAL IVP PRN ×2 (00:02→09:21)
[2020-12-24] MEDS: methylPREDNISolone SOD SUCCI 125 MG/2 ML VIAL IV SCH ×4 (05:09→23:38)
[2020-12-24 05:42] LABS: ALT 124 U/L (4-34); AST 185 U/L (14-36); African American GFR (CKD) >90 (>60 ml/min/1.73 sqM); Albumin 2.5 g/dL (3.5-5.0); Alkaline Phosphatase 69 U/L (38-126); Anion Gap 6 mmol/L; Blood Urea Nitrogen 13 mg/dL (7-17); Carbon Dioxide 22 mmol/L (22-30); Chloride 110 mmol/L (98-107); Glucose 129 mg/dL (74-99); Non-African American GFR(CKD) >90 (>60 ml/min/1.73 sqM); Potassium 4.3 mmol/L (3.5-5.1); Sodium 138 mmol/L (137-145); Total Bilirubin 0.4 mg/dL (0.2-1.3); Total Protein 5.5 g/dL (6.3-8.2)
[2020-12-24 05:51] LABS: HCT 33.2 % (34.0-46.0); MCH 29.4 pg (25.0-35.0); MCHC 33.3 g/dL (31.0-37.0); MCV 88.3 fL (80.0-100.0); Mean Platelet Volume 7.1; Platelet Count 160 k/uL (150-450); RBC 3.76 m/uL (3.80-5.40); RDW 13.9 % (11.5-15.5)
[2020-12-24 06:03] LABS: WBC 0.8 k/uL (3.8-10.6)
[2020-12-24] MEDS: PANTOPRAZOLE 40 MG/10 ML VIAL IVP SCH ×2 (09:02→20:20)
[2020-12-24] MEDS: ESCITALOPRAM 5 MG TAB PO SCH (09:03)
[2020-12-24] MEDS: HEPARIN SODIUM,PORCINE 5,000 UNIT/ML 1 ML VIAL SQ SCH ×2 (09:03→20:21)
[2020-12-24] MEDS: busPIRone HCl 5 MG TAB PO SCH ×2 (09:03→20:21)
[2020-12-24] MEDS: PRENATAL VIT-IRON-FOLIC ACID 1 EACH CAP PO SCH (09:03)
[2020-12-24 09:13] LABS: % Iron Saturation 42.53 (12.00-45.00); Iron 94 ug/dL (50-170); Total Iron Binding Capacity 221 ug/dL (228-460)
[2020-12-24 09:53] LABS: Ferritin 1323.6 ng/mL (10.0-291.0)
[2020-12-24 11:29] LABS: IgG Subclass 3 54.2 mg/dL (11.0-85.0); IgG Subclass 4 39.3 mg/dL (3.0-175.0)
[2020-12-24 11:58] LABS: Glucose,Whole Blood 139 mg/dL (75-99)
[2020-12-24] MEDS: INSULIN ASPART (NovoLOG) 100 UNIT/ML VIAL SQ SCH ×3 (12:34→20:34)
[2020-12-24] MEDS: SODIUM CHLORIDE 0.9% 1,000 ML IV SCH ×2 (13:46→18:19)
[2020-12-24 14:27] VITALS: BMI 31.2
[2020-12-24 14:52] LABS: JO-1 IgG Antibody <0.2 AI; Scleroderma SC-70 Ab 0.3 AI
--- NOTE | 2020-12-24 16:16 | P.PN ---
Subjective Progress Note Date: 12/24/20 Principal diagnosis: Elevated LFTs, pancreatitis she was seen and examined sitting up in bed. She states abdominal discomfort and dry heaves has improved. She was seen by rheumatology yesterday and states she was formally diagnosed with lupus. Patient states she was started on steroids and has had no further episodes of dry heaving. Patient was also seen by hematology. Denies any acute changes through the night, denies any fevers or chills. Objective - Vital Signs Vital signs: Vital Signs Temp 97.8 F 12/24/20 08:12 Pulse 91 12/24/20 08:12 Resp 20 12/24/20 08:12 BP 137/79 12/24/20 08:12 Pulse Ox 97 12/24/20 08:12 Intake & Output 12/23/20 12/24/20 12/24/20 18:59 06:59 18:59 Intake Total 60 Balance 60 Intake: Oral 60 Other: # Voids 1 1 # Bowel Movements 1 1 - Exam General appearance: The patient is alert, oriented, appears in no acute distress. HET: Head is normocephalic and atraumatic. Conjunctiva pink. Sclera anicteric. Neck: Supple without lymphadenopathy. Abdomen: Soft, nontender, nondistended with bowel sounds. No guarding or rigidity. Extremities: Normal skin color and turgor. No pedal edema Skin: Butterfly rash along nose and cheeks Neurological: No focal deficits. Alert and oriented 3. - Labs CBC & Chem 7: 12/24/20 05:05 12/24/20 05:05 Labs: Abnormal Lab Results - Last 24 Hours (Table) 12/21/20 12/23/20 12/23/20 Range/Units 07:48 14:59 14:59 WBC (3.8-10.6) k/uL RBC (3.80-5.40) m/uL Hgb (11.4-16.0) gm/dL Hct (34.0-46.0) % ESR 41 H (0-20) mm/hr Chloride (98-107) mmol/L Glucose (74-99) mg/dL POC Glucose (mg/dL) (75-99) mg/dL Calcium (8.4-10.2) mg/dL TIBC (228-460) ug/dL Ferritin (10.0-291.0) ng/mL AST (14-36) U/L ALT (4-34) U/L Creatine Kinase 338 H (30-135) U/L Total Protein (6.3-8.2) g/dL Total Protein (PEP) (6.2-8.2) g/dL Albumin (3.5-5.0) g/dL IgG1 1090.0 H (405.0-1011.0) mg/dL 12/24/20 12/24/20 12/24/20 Range/Units 05:05 05:05 05:05 WBC 0.8 L* (3.8-10.6) k/uL RBC 3.76 L (3.80-5.40) m/uL Hgb 11.0 L (11.4-16.0) gm/dL Hct 33.2 L (34.0-46.0) % ESR (0-20) mm/hr Chloride 110 H (98-107) mmol/L Glucose 129 H (74-99) mg/dL POC Glucose (mg/dL) (75-99) mg/dL Calcium 8.0 L (8.4-10.2) mg/dL TIBC 221 L (228-460) ug/dL Ferritin 1323.6 H (10.0-291.0) ng/mL AST 185 H (14-36) U/L ALT 124 H (4-34) U/L Creatine Kinase (30-135) U/L Total Protein 5.5 L (6.3-8.2) g/dL Total Protein (PEP) 5.0 L (6.2-8.2) g/dL Albumin 2.5 L (3.5-5.0) g/dL IgG1 (405.0-1011.0) mg/dL 12/24/20 Range/Units 11:54 WBC (3.8-10.6) k/uL RBC (3.80-5.40) m/uL Hgb (11.4-16.0) gm/dL Hct (34.0-46.0) % ESR (0-20) mm/hr Chloride (98-107) mmol/L Glucose (74-99) mg/dL POC Glucose (mg/dL) 139 H (75-99) mg/dL Calcium (8.4-10.2) mg/dL TIBC (228-460) ug/dL Ferritin (10.0-291.0) ng/mL AST (14-36) U/L ALT (4-34) U/L Creatine Kinase (30-135) U/L Total Protein (6.3-8.2) g/dL Total Protein (PEP) (6.2-8.2) g/dL Albumin (3.5-5.0) g/dL IgG1 (405.0-1011.0) mg/dL Microbiology - Last 24 Hours (Table) 12/20/20 15:59 Blood Culture - Preliminary Blood No Growth after 72 hours Assessment and Plan (1) Elevated liver enzymes Narrative/Plan: 25-year-old female presenting for symptoms of fatigue, weakness, arthralgias and low-grade fevers. Mild elevation in lipase on presentation however computed tomography scan of the abdomen with no findings suggestive of pancreatitis. Patient had mild elevation in liver enzymes predominantly in a hepatocellular pattern with negative testing for acute viral hepatitis. Patient does have a positive antibody testing for lupus with consult placed for rheumatology. Current Visit: Yes Status: Acute Priority: High Code(s): R74.8 - ABNORMAL LEVELS OF OTHER SERUM ENZYMES SNOMED Code(s): 335703084 (2) Fever Current Visit: Yes Status: Acute Priority: High Code(s): R50.9 - FEVER, UNSPECIFIED SNOMED Code(s): 763935790 (3) Leukopenia Current Visit: Yes Status: Acute Priority: High Code(s): D72.819 - DEC REASED WHITE BLOOD CELL COUNT, UNSPECIFIED SNOMED Code(s): 90623512 Plan: Supportive care Advance diet as tolerated Continue antiemetic therapy as needed Continue monitor CBC, BMP and LFTs Acute viral hepatitis panel negative Suspicion is for elevation in liver enzymes secondary to underlying autoimmune disease, we'll continue to monitor, full liver serology was ordered and still pending Computed tomography scan of the abdomen reviewed appreciate recommendations from rheumatology and hematology Thank you for allowing us to participate in the care of the patient, we will be on standby at this time. Patient may follow-up with gastroenterology in outpatient basis to continue to monitor trending LFTs Dr. Palma I agree with the dictator's note, documented as a scribe by Peri Queen.
--- NOTE | 2020-12-24 16:24 | P.CONS ---
History of Present Illness - Reason for Consult Consult date: 12/24/20 leukopenia Requesting physician: Radha Costa - Chief Complaint fever - History of Present Illness Mrs. Evans is a very pleasant 25 year old female who we have been asked to see re: leukopenia, new onset, progressive over her hospitalization. She denies any Hx of low blood counts, cancer, no family history of cancer or autoimmune disease. She delivered a healthy baby about 4 weeks ago, states a rather uncomplicated , did require due to anatomy. She states she started having fevers post , 2 weeks ago. She was treated for UTI with bactrim then abx changed, she denies having any urinary symptoms, only fever. She has also been experiencing N, dry heaves, and diarrhea-which has subsequently cleared up. Last week she was started on buspar and lexapro for concerns for post depression. The rash on her cheeks showed up shortly after . Denies cough, BOYD, palpitations, abd pain, unusual bleeding, swelling or pain. Review of Systems 14 point ROS is negative except as stated in HPI Past Medical History Past Medical History: No Reported History History of Any Multi-Drug Resistant Organisms: None Reported Past Surgical History: Section Additional Past Surgical History / Comment(s): 10/30/20 , wisdom teeth removal. Past Anesthesia/Blood Transfusion Reactions: No Reported Reaction Past Psychological History: No Psychological Hx Reported Additional Psychological History / Comment(s): Patient feeling anxious and depressed since of child. Smoking Status: Never smoker Past Alcohol Use History: None Reported Past Drug Use History: None Reported - Past Family History Mother Family Medical History: No Reported History Father Family Medical History: Cancer Additional Family Medical History / Comment(s): testicular cancer. Medications and Allergies Home Medications Medication Instructions Recorded Confirmed Type Acetaminophen Tab [Tylenol Tab] 1,000 mg PO Q6HR PRN 12/20/20 12/20/20 History Escitalopram [Lexapro] 5 mg PO DAILY 12/20/20 12/20/20 History Ibuprofen [Motrin Ib] 400 mg PO Q8H PRN 12/20/20 12/20/20 History Norethindrone [Malinda] 0.35 mg PO DAILY 12/20/20 12/20/20 History Ondansetron Odt [Zofran ODT] 4 mg PO Q8H PRN 12/20/20 12/20/20 History Rjt-Dhze-Dzbxx Acid 1 cap PO DAILY 12/20/20 12/20/20 History [-U Capsule (formulary)] busPIRone HCl [Buspar] 5 mg PO BID 12/20/20 12/20/20 History Allergies Allergy/AdvReac Type Severity Reaction Status Date / Time No Known Allergies Allergy Verified 12/20/20 15:18 Physical Exam Vitals: Vital Signs Temp Pulse Resp BP Pulse Ox 12/24/20 15:20 97.5 F L 65 20 112/71 95 12/24/20 08:12 97.8 F 91 20 137/79 97 12/24/20 08:11 97.4 F L 80 18 128/79 95 12/24/20 01:03 98.7 F 91 16 117/74 95 12/23/20 19:48 98.4 F 77 18 117/78 96 Intake and Output 12/24/20 12/24/20 12/24/20 06:59 14:59 22:59 Other: # Voids 1 # Bowel Movements 1 Weight 80 kg - Constitutional General appearance: average body habitus, cooperative, no acute distress - EENT Eyes: anicteric sclerae, EOMI ENT: hearing grossly normal, normal oropharynx - Neck Neck: no lymphadenopathy - Respiratory Respiratory: bilateral: CTA, diminished (bases) - Cardiovascular Rhythm: regular Heart sounds: normal: S1, S2 Abnormal Heart Sounds: no systolic murmur, no diastolic murmur, no rub, no S3 Gallop, no S4 Gallop, no click, no other leg Peripheral Edema: bilateral: None - Gastrointestinal General gastrointestinal: no absent bowel sounds, no decreased bowel sounds, no distended, no hepatomegaly, no hyperactive bowel sounds, normal bowel sounds, no organomegaly, no rigid, no scaphoid, soft, no splenomegaly, no tenderness, no umbilical hernia, no ventral hernia - Integumentary rash on the cheeks, L>R - Neurologic Neurologic: CNII-XII intact - Musculoskeletal Musculoskeletal: strength equal bilaterally - Psychiatric Psychiatric: A&O x's 3, appropriate affect, intact judgment & insight Results CBC & Chem 7: 12/24/20 05:05 12/24/20 05:05 Labs: Abnormal Lab Results - Last 24 Hours (Table) 12/21/20 12/23/20 12/23/20 Range/Units 07:48 14:59 14:59 WBC (3.8-10.6) k/uL RBC (3.80-5.40) m/uL Hgb (11.4-16.0) gm/dL Hct (34.0-46.0) % ESR 41 H (0-20) mm/hr Chloride (98-107) mmol/L Glucose (74-99) mg/dL POC Glucose (mg/dL) (75-99) mg/dL Calcium (8.4-10.2) mg/dL TIBC (228-460) ug/dL Ferritin (10.0-291.0) ng/mL AST (14-36) U/L ALT (4-34) U/L Total Protein (6.3-8.2) g/dL Total Protein (PEP) (6.2-8.2) g/dL Albumin (3.5-5.0) g/dL IgG1 1090.0 H (405.0-1011.0) mg/dL SS-B Ab Interp POSITIVE A (NEGATIVE) 12/24/20 12/24/20 12/24/20 Range/Units 05:05 05:05 05:05 WBC 0.8 L* (3.8-10.6) k/uL RBC 3.76 L (3.80-5.40) m/uL Hgb 11.0 L (11.4-16.0) gm/dL Hct 33.2 L (34.0-46.0) % ESR (0-20) mm/hr Chloride 110 H (98-107) mmol/L Glucose 129 H (74-99) mg/dL POC Glucose (mg/dL) (75-99) mg/dL Calcium 8.0 L (8.4-10.2) mg/dL TIBC 221 L (228-460) ug/dL Ferritin 1323.6 H (10.0-291.0) ng/mL AST 185 H (14-36) U/L ALT 124 H (4-34) U/L Total Protein 5.5 L (6.3-8.2) g/dL Total Protein (PEP) 5.0 L (6.2-8.2) g/dL Albumin 2.5 L (3.5-5.0) g/dL IgG1 (405.0-1011.0) mg/dL SS-B Ab Interp (NEGATIVE) 12/24/20 Range/Units 11:54 WBC (3.8-10.6) k/uL RBC (3.80-5.40) m/uL Hgb (11.4-16.0) gm/dL Hct (34.0-46.0) % ESR (0-20) mm/hr Chloride (98-107) mmol/L Glucose (74-99) mg/dL POC Glucose (mg/dL) 139 H (75-99) mg/dL Calcium (8.4-10.2) mg/dL TIBC (228-460) ug/dL Ferritin (10.0-291.0) ng/mL AST (14-36) U/L ALT (4-34) U/L Total Protein (6.3-8.2) g/dL Total Protein (PEP) (6.2-8.2) g/dL Albumin (3.5-5.0) g/dL IgG1 (405.0-1011.0) mg/dL SS-B Ab Interp (NEGATIVE) Microbiology - Last 24 Hours (Table) 12/20/20 15:59 Blood Culture - Preliminary Blood No Growth after [address] scan - abdomen: report reviewed CT scan - chest: report reviewed CT Scan - head: report reviewed CT scan - pelvis: report reviewed Venous US: report reviewed Assessment and Plan (1) Leukopenia Current Visit: Yes Status: Acute Priority: High Code(s): D72.819 - DECREASED WHITE BLOOD CELL COUNT, UNSPECIFIED SNOMED Code(s): 77042333 (2) Fever Current Visit: Yes Status: Acute Priority: High Code(s): R50.9 - FEVER, UNSPECIFIED SNOMED Code(s): 656951626 (3) Elevated liver enzymes Narrative/Plan: Elevated amylase and lipase too. Seen and evaluated by Gastroenterology Current Visit: Yes Status: Acute Priority: High Code(s): R74.8 - ABNORMAL LEVELS OF OTHER SERUM ENZYMES SNOMED Code(s): 004854463 Plan: Labs and diagnostics reviewed. Additional labs ordered. Pt states she has had HIV testing, social Hx low for risk of HIV exposure. Inflammation/autoimmune response most likely underlying cause. New medications last week, buspar and lexapro. Agree with steroids, cont at 60mg solumedrol Q 6 for now
[2020-12-24 18:10] LABS: Glucose,Whole Blood 125 mg/dL (75-99)
--- NOTE | 2020-12-24 20:30 | PN ---
PROGRESS NOTE DATE OF SERVICE: 12/24/2020 This 25-year-old woman who was admitted with prolonged fever after had failed outpatient treatment. The patient was evaluated. The patient had a malar rash. and SANIA was positive. The patient was started on empiric steroids by Dr. Menendez, the vegetable farm manager. The patient also had some nausea. The patient also had pancreatitis, most likely autoimmune in nature, and Gastroenterology is following the patient closely. Past medical history reviewed. REVIEW OF SYSTEMS: CARDIOVASCULAR SYSTEM: No angina, palpitations. RESPIRATORY SYSTEM: As mentioned earlier. GI: As mentioned earlier. : No dysuria or retention. NERVOUS SYSTEM: No numbness or weakness. CURRENT MEDICATIONS: Reviewed. They include Tylenol, Lexapro, heparin, multivitamins and Protonix. Doses are reviewed. PHYSICAL EXAMINATION: Patient alert and oriented x3. Pulse 91, blood pressure 137/79, respiration 20, temperature 97.8, pulse ox 97% on room air. HEENT: Conjunctivae normal. NECK: No jugular venous distention. CARDIOVASCULAR SYSTEM: S1, S2 muffled. RESPIRATORY SYSTEM: Breath sounds diminished at the bases. Scattered rhonchi and crackles. ABDOMEN: Soft, non-tender. LEGS: No edema. No swelling. NERVOUS SYSTEM: No focal deficit. LABS: WBC 0.8, mostly lymphopenia. Other labs are noted. ASSESSMENT: 1. Fever with a rash with possible lupus erythematosus. 2. History of recent section. 3. Possible acute pancreatitis. 4. Neutropenia and severe leukopenia. 5. Anemia, normocytic anemia of chronic disease. 6. Mild thrombocytopenia. 7. Hyponatremia. 8. Elevated AST and ALT, acute hepatitis of undetermined etiology. 9. Elevated creatine kinase. 10.Mild hypoalbuminemia. 11.Elevated amylase and lipase with acute pancreatitis. 12.Elevated procalcitonin. 13.FULL CODE. RECOMMENDATIONS AND DISCUSSION: I recommend to continue current medications, continue with the monitoring, symptomatic treatment. Hematology/oncology evaluation. Continue with IV steroids. I would also recommend monitoring blood sugars closely to rule out the possibility of any steroid- induced diabetes mellitus. Guarded prognosis. Further recommendations to follow. MMODL / IJN: [id number] / MTDD
[2020-12-24 20:32] LABS: Glucose,Whole Blood 167 mg/dL (75-99)
--- NOTE | 2020-12-24 22:28 | PN ---
PROGRESS NOTE DATE OF SERVICE: 12/24/2020 REASON FOR FOLLOWUP: Fever; possible rheumatological disorder. lupus. INTERVAL HISTORY: The patient is currently afebrile. The patient is feeling better today. She is breathing comfortably. Denies having any chest pain or shortness of breath or cough. Some nausea but no vomiting. No abdominal pain or diarrhea. PHYSICAL EXAMINATION: Blood pressure 112/71 with a pulse of 55, temperature 97.5. She is 95% on room air. General description is a young female lying in bed in no distress. RESPIRATORY SYSTEM: Unlabored breathing. Clear to auscultation anteriorly. ABDOMEN: Soft. No tenderness. LABS: Patient was noted to have leukopenia with a white count of 0.8. Liver enzymes are elevated. A antibody came back positive. DIAGNOSTIC IMPRESSION AND PLAN: Patient with a fever, abnormal liver enzymes, leukopenia, and has been diagnosed with possible lupus by Rheumatology. She has been started on Solu-Medrol in view of the worsening of leukopenia, serology will be requested as well. Continue supportive care. MMODL / IJN: [id number] /
[2020-12-24 22:30] LABS: Glucose,Whole Blood 148 mg/dL (75-99)
[2020-12-25 01:54] VITALS: RESP 16; TEMP 97.8
[2020-12-25 02:42] LABS: EBV-EBNA(IgG) >8.0 AI; EBV-VCA (IgG) >8.0 AI; EBV-VCA (IgM) <0.2 AI
[2020-12-25] MEDS: methylPREDNISolone SOD SUCCI 125 MG/2 ML VIAL IV SCH ×2 (05:21→12:47)
[2020-12-25 05:46] LABS: Basophils % (A) 0 %; Eosinophils % (A) 0 %; HCT 31.7 % (34.0-46.0); HGB 10.7 gm/dL (11.4-16.0); Lymphocytes # (A) 0.3 k/uL (1.0-4.8); Lymphocytes % (A) 15 %; MCHC 33.7 g/dL (31.0-37.0); MCV 88.9 fL (80.0-100.0); Mean Platelet Volume 6.9; Monocytes # (A) 0.1 k/uL (0-1.0); Monocytes % (A) 5 %; Neutrophils # (A) 1.5 k/uL (1.3-7.7); Neutrophils % (A) 76 %; Platelet Count 166 k/uL (150-450); RBC 3.56 m/uL (3.80-5.40); RDW 13.5 % (11.5-15.5); WBC 1.9 k/uL (3.8-10.6)
[2020-12-25 06:17] LABS: African American GFR (CKD) >90 (>60 ml/min/1.73 sqM); Anion Gap 4 mmol/L; Blood Urea Nitrogen 16 mg/dL (7-17); Calcium 8.2 mg/dL (8.4-10.2); Carbon Dioxide 23 mmol/L (22-30); Chloride 112 mmol/L (98-107); Glucose 127 mg/dL (74-99); Non-African American GFR(CKD) >90 (>60 ml/min/1.73 sqM); Potassium 4.6 mmol/L (3.5-5.1); Sodium 139 mmol/L (137-145)
[2020-12-25 06:33] LABS: Glucose,Whole Blood 123 mg/dL (75-99)
[2020-12-25] MEDS: INSULIN ASPART (NovoLOG) 100 UNIT/ML VIAL SQ SCH ×2 (06:36→12:40)
[2020-12-25 08:34] VITALS: BP 109/67; PULSE 62
[2020-12-25] MEDS: busPIRone HCl 5 MG TAB PO SCH (09:37)
[2020-12-25] MEDS: PRENATAL VIT-IRON-FOLIC ACID 1 EACH CAP PO SCH (09:37)
[2020-12-25] MEDS: ESCITALOPRAM 5 MG TAB PO SCH (09:37)
[2020-12-25] MEDS: PANTOPRAZOLE 40 MG/10 ML VIAL IVP SCH (09:38)
[2020-12-25] MEDS: HEPARIN SODIUM,PORCINE 5,000 UNIT/ML 1 ML VIAL SQ SCH (09:38)
[2020-12-25] MEDS: SODIUM CHLORIDE 0.9% 1,000 ML IV SCH (10:57)
[2020-12-25 11:09] LABS: Liver/Kidney Microsome Antibod 3.2 UNITS (<=20)
[2020-12-25 11:56] LABS: Ceruloplasmin 19.8 mg/dL (20.0-60.0)
[2020-12-25 12:34] LABS: Glucose,Whole Blood 147 mg/dL (75-99)
--- NOTE | 2020-12-25 13:13 | P.PN ---
Subjective Progress Note Date: 12/25/20 Principal diagnosis: Fever unknown origin, leukopenia In f/u today pt is stable, no new c/o, no fever overnight. Tolerates oral intake, is ambulatory, no pain Objective - Vital Signs Vital signs: Vital Signs Temp 97.8 F 12/25/20 08:27 Pulse 62 12/25/20 08:27 Resp 16 12/25/20 08:27 BP 109/67 12/25/20 08:27 Pulse Ox 94 L 12/25/20 08:27 Intake & Output 12/24/20 12/25/20 12/25/20 18:59 06:59 18:59 Intake Total 300 Balance 300 Weight 80 kg Intake: Oral 300 Other: Voiding Method Toilet Toilet # Voids 2 2 # Bowel Movements 1 - Constitutional General appearance: Present: average body habitus, cooperative, no acute distress - EENT Eyes: Present: anicteric sclerae, EOMI, normal appearance ENT: Present: hearing grossly normal - Respiratory Details: resp even and unlabored - Peripheral edema leg Peripheral Edema: bilateral: None - Integumentary Integumentary Comment(s): visible red rash on cheeks - Neurologic Neurologic: Present: CNII-XII intact - Musculoskeletal Musculoskeletal: Present: strength equal bilaterally - Psychiatric Psychiatric: Present: A&O x's 3, appropriate affect, intact judgment & insight - Labs CBC & Chem 7: 12/25/20 05:19 12/25/20 05:19 Labs: Abnormal Lab Results - Last 24 Hours (Table) 12/23/20 12/23/20 12/23/20 Range/Units 05:28 05:28 14:59 WBC (3.8-10.6) k/uL RBC (3.80-5.40) m/uL Hgb (11.4-16.0) gm/dL Hct (34.0-46.0) % Lymphocytes # (1.0-4.8) k/uL Chloride (98-107) mmol/L Glucose (74-99) mg/dL POC Glucose (mg/dL) (75-99) mg/dL Calcium (8.4-10.2) mg/dL Ceruloplasmin (20.0-60.0) mg/dL SS-B Ab Interp POSITIVE A (NEGATIVE) CMV IgG Ab Reactive A (Non-Reactive) CMV IgM Ab Reactive A (Non-Reactive) EBV Capsid Ag IgG Intrp POSITIVE A (NEGATIVE) EBV EA IgG Ab Interp POSITIVE A (NEGATIVE) EBV Nuc Ag IgG Interp POSITIVE A (NEGATIVE) 12/24/20 12/24/20 12/24/20 Range/Units 05:05 18:07 20:29 WBC (3.8-10.6) k/uL RBC (3.80-5.40) m/uL Hgb (11.4-16.0) gm/dL Hct (34.0-46.0) % Lymphocytes # (1.0-4.8) k/uL Chloride (98-107) mmol/L Glucose (74-99) mg/dL POC Glucose (mg/dL) 125 H 167 H (75-99) mg/dL Calcium (8.4-10.2) mg/dL Ceruloplasmin 19.8 L (20.0-60.0) mg/dL SS-B Ab Interp (NEGATIVE) CMV IgG Ab (Non-Reactive) CMV IgM Ab (Non-Reactive) EBV Capsid Ag IgG Intrp (NEGATIVE) EBV EA IgG Ab Interp (NEGATIVE) EBV Nuc Ag IgG Interp (NEGATIVE) 12/24/20 12/25/20 12/25/20 Range/Units 22:28 05:19 05:19 WBC 1.9 L (3.8-10.6) k/uL RBC 3.56 L (3.80-5.40) m/uL Hgb 10.7 L (11.4-16.0) gm/dL Hct 31.7 L (34.0-46.0) % Lymphocytes # 0.3 L (1.0-4.8) k/uL Chloride 112 H (98-107) mmol/L Glucose 127 H (74-99) mg/dL POC Glucose (mg/dL) 148 H (75-99) mg/dL Calcium 8.2 L (8.4-10.2) mg/dL Ceruloplasmin (20.0-60.0) mg/dL SS-B Ab Interp (NEGATIVE) CMV IgG Ab (Non-Reactive) CMV IgM Ab (Non-Reactive) EBV Capsid Ag IgG Intrp (NEGATIVE) EBV EA IgG Ab Interp (NEGATIVE) EBV Nuc Ag IgG Interp (NEGATIVE) 12/25/20 12/25/20 Range/Units 06:31 12:31 WBC (3.8-10.6) k/uL RBC (3.80-5.40) m/uL Hgb (11.4-16.0) gm/dL Hct (34.0-46.0) % Lymphocytes # (1.0-4.8) k/uL Chloride (98-107) mmol/L Glucose (74-99) mg/dL POC Glucose (mg/dL) 123 H 147 H (75-99) mg/dL Calcium (8.4-10.2) mg/dL Ceruloplasmin (20.0-60.0) mg/dL SS-B Ab Interp (NEGATIVE) CMV IgG Ab (Non-Reactive) CMV IgM Ab (Non-Reactive) EBV Capsid Ag IgG Intrp (NEGATIVE) EBV EA IgG Ab Interp (NEGATIVE) EBV Nuc Ag IgG Interp (NEGATIVE) Microbiology - Last 24 Hours (Table) 12/20/20 15:59 Blood Culture - Preliminary Blood No Growth after 96 hours Assessment and Plan (1) Leukopenia Narrative/Plan: Despite low WBC, ANC is adequate. ALC slightly low-viral? No acute changes in plan of care from Hem/Onc standpoint Mult labs still pending Reviewed labs today-ID and Rheumatology Current Visit: Yes Status: Acute Priority: High Code(s): D72.819 - DECREASED WHITE BLOOD CELL COUNT, UNSPECIFIED SNOMED Code(s): 86136384 (2) Fever Narrative/Plan: Fever pattern has abated. Current Visit: Yes Status: Acute Priority: High Code(s): R50.9 - FEVER, UNSPECIFIED SNOMED Code(s): 577284130 (3) Elevated liver enzymes Narrative/Plan: In concert with viral ab, infection may be the underlying cause. ID following. Current Visit: Yes Status: Acute Priority: High Code(s): R74.8 - ABNORMAL LEVELS OF OTHER SERUM ENZYMES SNOMED Code(s): 699529052 Plan: Doctor attests: I performed a history and physical examination of this patient, developed impression and plan of care, discussed with dictator. I agree with dictators note, documented as a scribe.
[2020-12-25 14:50] LABS: Free Kappa Lt Chain Qnt, Serum 4.55 mg/dL (0.33-1.94)
--- NOTE | 2020-12-25 15:06 | PN ---
PROGRESS NOTE DATE OF SERVICE: 12/25/2020 REASON FOR FOLLOWUP: Fever, leukopenia and possible acute CMV. INTERVAL HISTORY: The patient is currently afebrile. The patient is feeling better. Breathing comfortably. Patient denies having any chest pain or shortness of breath or cough. No abdominal pain or diarrhea. PHYSICAL EXAMINATION: Blood pressure 109/67 with pulse of 62, temperature is 97.8. She is 94% on room air. General description is a middle-aged female lying in bed in no distress. RESPIRATORY SYSTEM: Unlabored breathing, clear to auscultation anteriorly. HEART: S1, S2. Regular rate and rhythm. ABDOMEN: Soft, no tenderness. LABS: Hemoglobin is 10.7, white count 1.9, BUN of 16, creatinine 0.69. CMV IgM and IgG are positive. EBV IgG positive, IgM is negative. DIAGNOSTIC IMPRESSION AND PLAN: Patient with fever, rash with concern for possible lupus versus acute CMV infection not entirely excluded in view of significant pancytopenia and elevated liver enzymes, seemed to have shown overall clinical improvement. Treatment is mostly supportive. This has been discussed in detail with the opal polisher who is closely following the patient for possible SLE recommending to be checking her liver enzymes and CBC in a week post discharge. No need for antiviral or antibiotics. MMODL / IJN: [id number] /
[2020-12-25 17:19] LABS: Albumin 2.36 g/dL (3.80-4.90); Gamma Globulin 1.07 g/dL (0.70-1.50)
--- NOTE | 2020-12-26 01:33 | P.DS ---
Providers Date of admission: 12/22/20 14:08 Attending physician: Radha Costa Consults: 12/20/20 15:46 Consult Physician Routine Consulting Provider: Otis Stover Consult Reason/Comments: fever Do you want consulting provider notified?: Yes 12/20/20 16:52 Consult Physician Routine Consulting Provider: Leora Garduno Consult Reason/Comments: pancreatitis Do you want consulting provider notified?: Yes 12/21/20 09:28 Consult Physician Routine Consulting Provider: Bisi Menendez Consult Reason/Comments: lupus?? Do you want consulting provider notified?: Yes 12/24/20 10:26 Consult Physician Routine Consulting Provider: Celestine Moss Consult Reason/Comments: severe neutropenia Do you want consulting provider notified?: Yes Primary care physician: Brittney Palafox [facility] Course: Diagnoses: Mostly systemic lupus erythematosus Recent normal vaginal delivery about 4 weeks ago depression about 2 weeks earlier Hospital course: This is a pleasant 25 years old female with no significant past medical history who presents with fever 2 weeks after normal vaginal delivery associated with leukopenia, elevated liver enzymes and fever with some minor rash. Also patient and arthralgia in her arm and leg joints. Associated with severe weakness with bilateral hand pain and numbness similar to carpal tunnel syndrome as patient describes. Patient workup was unremarkable including acute viral hepatitis, CTA of the chest with negative for pulmonary embolism, CT of the abdomen and pelvis and ultrasound of the lower extremity which was negative for DVT. Echocardiogram with ejection fraction 50-55% also patient has been evaluated by infectious disease, survey worker for leukopenia and GI team for elevated liver enzymes. Eventually automation and controls manager Dr. Menendez evaluated the patient and diagnosed her with lupus and patient was started on some Medrol 60 mg and she showed significant interval improvement in her symptoms Her WBC improved from 0.8 up to 1.9K. Rest of CBC and BMP was stable Dr. Menendez called me today and discussed the case with me. She saw the patient today and discussed with ID team doctor site and both cleared the patient for discharge. Dr. Menendez told me that she wants the patient to be discharged on 30 mg of prednisone daily and expected her in the office in one week. Also advised no need for antibiotics upon discharge as per ID team as well Also patient was feeling much better today. Patient told me today "since steroids started and feel better and back told me" she regained her strength in her arms and legs, she denies any GI or respiratory symptoms, no diarrhea or vomiting. She is eating well. No cough and no chest pain or dyspnea. No more fever for more than 48 hours Patient was eager to go home today Patient was cleared for discharge by all consultants including rheumatology, infectious disease, hematology and GI team Problems and management plan were discussed with the patient and he verbalized understanding and acceptance Patient was found stable and can be discharged home however he needs follow-up as an outpatient. Patient was instructed to follow up with PCP Dr. Palafox within one week and patient agrees. Also patient was instructed to follow up with automation and controls manager in one week and quality improvement engineer Dr. palma in 1-[address] Moss in 2 weeks. She asked the staff to make appointments for her otherwise she will make it by herself and follow-up as an outpatient Physical exam -Gen: patient is a AAOx3, no distress. Mild bilateral malar rash CVS: S1-S2, RRR, no murmur Lungs: B/L CTA, no wheezing Abdomen: soft, no distention, no tenderness, positive bowel sounds Extremity: no leg edema or induration Time spent more than 35 minutes Plan - Discharge Summary Discharge Rx Participant: Yes New Discharge Prescriptions: New predniSONE 30 mg PO DAILY 7 Days #21 tab Pantoprazole Sodium [Protonix] 40 mg PO DAILY #15 tablet. Continue Acetaminophen Tab [Tylenol] 1,000 mg PO Q6HR PRN PRN Reason: Pain Or Fever > 100.5 [id number]-[id number] Acid [-U Capsule (formulary)] 1 cap PO DAILY Ondansetron Odt [Zofran ODT] 4 mg PO Q8H PRN PRN Reason: Nausea Escitalopram [Lexapro] 5 mg PO DAILY busPIRone HCl [Buspar] 5 mg PO BID Norethindrone [Malinda] 0.35 mg PO DAILY Discontinued Ibuprofen [Motrin Ib] 400 mg PO Q8H PRN PRN Reason: Pain Or Fever > 100.5 Discharge Medication List Acetaminophen Tab [Tylenol] 1,000 mg PO Q6HR PRN 12/20/20 [History] Escitalopram [Lexapro] 5 mg PO DAILY 12/20/20 [History] Norethindrone [Malinda] 0.35 mg PO DAILY 12/20/20 [History] Ondansetron Odt [Zofran ODT] 4 mg PO Q8H PRN 12/20/20 [History] Erw-Ytsx-Utbhe Acid [-U Capsule (formulary)] 1 cap PO DAILY 12/20/20 [History] busPIRone HCl [Buspar] 5 mg PO BID 12/20/20 [History] Pantoprazole Sodium [Protonix] 40 mg PO DAILY #15 tablet.dr 12/25/20 [Rx] predniSONE 30 mg PO DAILY 7 Days #21 tab 12/25/20 [Rx] Follow up Appointment(s)/Referral(s): Bisi Menendez MD [STAFF PHYSICIAN] - 01/02/21 10:30 am Brittney Palafox MD [Primary Care Provider] - 12/31/20 2:00 pm Choco Palma MD [STAFF PHYSICIAN] - 01/16/21 2:00 pm Celestine Moss MD [STAFF PHYSICIAN] - 2 Weeks (survey worker ) Patient Instructions/Handouts: Lupus Erythematosus (GEN), Autoimmune Disease (GEN) Activity/Diet/Wound Care/Special Instructions: low carbohydrate diet while on steroids activity is restricted till you see your doctor we recommend to talk to your doctor before you stop or finish your course of oral prednisone also we recommend to HOLD breast feeding for your baby. and talk to your doctor first before any breast feeding Discharge Disposition: HOME SELF-CARE
[2020-12-26 07:49] LABS: Methylmalonic Acid 0.15 umol/L (<0.40)
--- NOTE | 2020-12-26 14:19 | CDI ---
Documentation Clarification Form Date: 12/26/2020 02:17:00 PM From: Alejandra Mckee CCS Phone: If you have a question about this query, please contact Beth Rodriguez Cotton Ginner at [phone] between 8am and 5pm Admit Date: 12/22/2020 02:08:00 PM Patient Name: RICARDO CHEUNG Visit Number: [id number] Discharge Date: 12/25/2020 03:45:00 PM ATTENTION: The Clinical Documentation Specialists (CDI) and [facility] Coding Staff appreciate your assistance in clarifying documentation. Please respond to the clarification below the line at the bottom and electronically sign. The CDI & [facility] Coding staff will review the response and follow-up if needed. Please note: Queries are made part of the Legal Health Record. If you have any questions, please contact the author of this message via ITS. Dr. Radha Costa Conflicting documentation has been found in the medical record: H&P and 12/24 Consult document: Patient had a section about 7 weeks ago at [facility]. Surgical History Section 10/30/20 DS documents: Recent normal vaginal delivery about 4 weeks ago History/Risk Factors: Recent Delivery, depression, SLE, Pancreatitis, Anemia, Neutropenia Clinical Indicators: Presents with fever, Significant rash In your opinion, what is the most clinically appropriate diagnosis for this patient? Delivery 4 weeks ago at [facility] Delivery on 10/30/20 at [facility] Other explanation of clinical findings Unable to determine (no explanation for clinical findings) Delivery on 10/30/20 at [facility]
== END 2020-12-25 15:45 | disposition home or self-care (01) | DRG 545 ==
LOC: 6PED 14:10 → OBSVTOIN 12-22 14:08
PROVIDERS: ADMIT Internal Medicine; ATTEND Hospitalist
DX: M32.9 Systemic lupus erythematosus, unspecified (principal); K85.90 Acute pancreatitis without necrosis or infection, unspecified; E87.1 Hypo-osmolality and hyponatremia; J98.11 Atelectasis; D69.6 Thrombocytopenia, unspecified; D70.9 Neutropenia, unspecified; E88.09 Other disorders of plasma-protein metabolism, not elsewhere classified; D63.8 Anemia in other chronic diseases classified elsewhere; Z20.822 Contact with and (suspected) exposure to COVID-19; F53.0 Postpartum depression; F41.9 Anxiety disorder, unspecified; Z71.3 Dietary counseling and surveillance; Z79.899 Other long term (current) drug therapy; Z80.43 Family history of malignant neoplasm of testis; Z87.440 Personal history of urinary (tract) infections; Z83.79 Family history of other diseases of the digestive system
CPT/HCPCS: 70450; 71046; 71275; 74177; 76705; 80048; 80053; 80061; 80074; 80076; 80306; 81001; 82085; 82103; 82150; 82390; 82550; 82607; 82728; 82747; 82787; 83516; 83540; 83550; 83615; 83690; 83735; 83883; 83921; 84100; 84145; 84165; 85025; 85379; 85610; 85652; 86038; 86039; 86140; 86225; 86235; 86334; 86376; 86431; 86644; 86645; 86663; 86664; 86665; 87040; 87086; 87502; 93306; 93970

== ENCOUNTER → 2022-02-26 | Outpatient (CLI) | payer BC ==
[2022-02-26 23:47] LABS: ALT 118 U/L (8-44); AST 56 U/L (13-35); Albumin 4.2 g/dL (3.8-4.9); Albumin/Globulin Ratio 1.65 (1.60-3.17); Alkaline Phosphatase 52 U/L (41-126); Bilirubin, Conjugated <0.20 mg/dL (0.20-0.40); Globulin 2.5 g/dL (1.6-3.3); Total Protein 6.7 g/dL (6.2-8.2)
== END | disposition home or self-care (01) ==
LOC: LABWHC1 15:38
PROVIDERS: ATTEND Internal Medicine
DX: M32.9 Systemic lupus erythematosus, unspecified (principal); R79.89 Other specified abnormal findings of blood chemistry
CPT/HCPCS: 36415; 80076

== ENCOUNTER 2022-03-15 11:36 | Emergency (ER) | payer BC ==
[2022-03-15 12:08] VITALS: RESP 14
[2022-03-15] MEDS ORDERED: MORPHINE SULFATE 2 MG/ML SYRINGE IVP STA (12:23)
--- NOTE | 2022-03-15 12:38 | ED ---
Chest Pain HPI - General Chief Complaint: Chest Pain Stated Complaint: chest pain, arm numbness Time Seen by Provider: 03/15/22 12:13 Source: patient Mode of arrival: wheelchair Limitations: no limitations - History of Present Illness Initial Comments: Patient is a 26-year-old female with past medical history of systemic lupus erythematosus who presents with a chief complaint of chest pain. Patient states the chest pain has been occurring intermittently for one month. She describes it as a tightness in the center of her chest. Patient states she woke up this morning with worsening of the tightness as well as some left arm numbness and tingling. The chest pain is not positional. No sweating, dizziness, shortness of breath, abdominal pain, nausea, or vomiting. Patient is currently taking prednisone for lupus flareup. She denies new skin changes, fever, and chills. Patient saw a director of hemophilia at [facility] on Thursday who has concern for inflammation of her heart. She states she has an appointment this Thursday for an echocardiogram. Patient denies history of hypertension, hyperlipidemia, coronary artery disease, diabetes, and stroke. She denies a family history of cardiac disease. She denies past and current use of tobacco. - Related Data Home Medications Medication Instructions Recorded Confirmed Acetaminophen Tab [Tylenol] 1,000 mg PO Q6HR PRN 12/20/20 12/20/20 Escitalopram [Lexapro] 5 mg PO DAILY 12/20/20 12/20/20 Norethindrone [Malinda] 0.35 mg PO DAILY 12/20/20 12/20/20 Ondansetron Odt [Zofran ODT] 4 mg PO Q8H PRN 12/20/20 12/20/20 Gja-Gazp-Qcqba Acid 1 cap PO DAILY 12/20/20 12/20/20 [-U Capsule (formulary)] busPIRone HCl [Buspar] 5 mg PO BID 12/20/20 12/20/20 Previous Rx's Medication Instructions Recorded Pantoprazole Sodium [Protonix] 40 mg PO DAILY #15 tablet. 12/25/20 predniSONE 30 mg PO DAILY 7 Days #21 tab 12/25/20 Allergies Allergy/AdvReac Type Severity Reaction Status Date / Time Sulfa (Sulfonamide AdvReac Nausea & Verified 04/30/22 11:37 Antibiotics) Vomiting Review of Systems ROS Statement: Those systems with pertinent positive or pertinent negative responses have been documented in the HPI. ROS Other: All systems not noted in ROS Statement are negative. EKG Findings - EKG Comments: EKG Findings:: EKG taken at 11:46. Sinus rhythm. Ventricular rate 82. AL interval 142. QRS duration 92. QTC 390 Past Medical History Past Medical History: No Reported History Additional Past Medical History / Comment(s): lupus History of Any Multi-Drug Resistant Organisms: None Reported Past Surgical History: Section Additional Past Surgical History / Comment(s): 10/30/20 , wisdom teeth removal. Past Anesthesia/Blood Transfusion Reactions: No Reported Reaction Past Psychological History: No Psychological Hx Reported Smoking Status: Never smoker Past Alcohol Use History: None Reported Past Drug Use History: None Reported - Past Family History Mother Family Medical History: No Reported History Father Family Medical History: Cancer Additional Family Medical History / Comment(s): testicular cancer. General Exam Limitations: no limitations General appearance: alert, in no apparent distress Head exam: Present: atraumatic, normocephalic, normal inspection Eye exam: Present: normal appearance, PERRL, EOMI. Absent: scleral icterus, conjunctival injection, periorbital swelling Neck exam: Present: normal inspection, full ROM Respiratory exam: Present: normal lung sounds bilaterally. Absent: respiratory distress, wheezes, rales, rhonchi, stridor Cardiovascular Exam: Present: regular rate, normal rhythm, normal heart sounds. Absent: systolic murmur, diastolic murmur, rubs, gallop, clicks, S3, S4 GI/Abdominal exam: Present: soft, normal bowel sounds. Absent: distended, tenderness, guarding, rebound, rigid Neurological exam: Present: alert, oriented X3, CN II-XII intact Psychiatric exam: Present: normal affect, normal mood Skin exam: Present: warm, dry, intact, normal color. Absent: rash Course Vital Signs 03/15/22 03/15/22 11:37 12:06 Temperature 98.6 F Pulse Rate 104 H 85 Respiratory 18 14 Rate Blood Pressure 147/90 130/85 O2 Sat by Pulse 100 100 Oximetry Chest Pain MDM - MDM The 26-year-old female with SLE history presenting with worsening chest pain during lupus flareup. Thorough history and examination were performed. Patient is well-appearing and in no apparent distress. No pericardial friction rub is appreciated EKG reveals sinus rhythm with no ST elevation or depression. Troponin is within normal limits. Chest x-ray is unremarkable. Heart score is 2. Case discussed with Dr. Salgado. Because patient is at low risk for adverse cardiac outcomes and has a follow-up director of hemophilia appointment this Thursday, patient is okay to manage her symptoms outpatient. Results discussed with patient. Patient is comfortable with seeing her director of hemophilia on Thursday. Return parameters discussed. She verbalizes understanding and is agreeable to this plan. Dr. Olivares is my attending. Disposition Clinical Impression: Chest pain, History of lupus Disposition: HOME SELF-CARE Condition: Good Instructions (If sedation given, give patient instructions): Chest Pain (ED) Additional Instructions: Please take Tylenol as needed for pain. Follow-up with your director of hemophilia as scheduled on Thursday. Return to the emergency department if you experience new, concerning, or worsening symptom. Is patient prescribed a controlled substance at d/c from ED?: No Referrals: Brittney Palafox MD [Primary Care Provider] - 1-2 days Time of Disposition: 13:42
[2022-03-15 12:45] LABS: Basophils % (A) 0 %; Eosinophils % (A) 0 %; HCT 44.7 % (34.0-46.0); Lymphocytes # (A) 0.6 k/uL (1.0-4.8); Lymphocytes % (A) 10 %; MCH 30.2 pg (25.0-35.0); MCHC 33.5 g/dL (31.0-37.0); MCV 90.3 fL (80.0-100.0); Monocytes # (A) 0.2 k/uL (0-1.0); Monocytes % (A) 3 %; Neutrophils # (A) 4.7 k/uL (1.3-7.7); Neutrophils % (A) 85 %; Platelet Count 225 k/uL (150-450); RBC 4.95 m/uL (3.80-5.40); RDW 13.1 % (11.5-15.5); WBC 5.5 k/uL (3.8-10.6)
--- NOTE | 2022-03-15 12:48 | XR ---
EXAMINATION TYPE: XR chest 2V DATE OF EXAM: 03/15/2022 COMPARISON: 12/20/2020 INDICATION: Chest pain TECHNIQUE: Frontal and lateral views of the chest are obtained. FINDINGS: The heart size is normal. The pulmonary vasculature is normal. The lungs are clear. IMPRESSION: 1. No acute pulmonary process.
[2022-03-15 12:57] LABS: ALT 43 U/L (4-34); AST 33 U/L (14-36); African American GFR (CKD) >90 (>60 ml/min/1.73 sqM); Albumin 4.7 g/dL (3.5-5.0); Alkaline Phosphatase 60 U/L (38-126); Anion Gap 10 mmol/L; Blood Urea Nitrogen 11 mg/dL (7-17); Calcium 10.3 mg/dL (8.4-10.2); Carbon Dioxide 26 mmol/L (22-30); Chloride 104 mmol/L (98-107); Glucose 95 mg/dL (74-99); INR 0.9 (<1.2); Magnesium 1.8 mg/dL (1.6-2.3); Non-African American GFR(CKD) >90 (>60 ml/min/1.73 sqM); Potassium 4.3 mmol/L (3.5-5.1); Sodium 140 mmol/L (137-145); Total Bilirubin 0.5 mg/dL (0.2-1.3); Total Protein 8.4 g/dL (6.3-8.2)
[2022-03-15 12:59] LABS: Partial Thromboplastin Time 21.1 sec (22.0-30.0)
[2022-03-15 13:10] LABS: C Reactive Protein <0.5 mg/dL (<1.0)
[2022-03-15 13:38] LABS: Erythrocyte Sedimentation Rate 9 mm/hr (0-20)
[2022-03-15 15:02] VITALS: BP 128/62; PULSE 80; TEMP 98
== END 2022-03-15 15:03 | disposition home or self-care (01) ==
LOC: EC 11:36
DX: R07.89 Other chest pain (principal); M32.9 Systemic lupus erythematosus, unspecified; Z79.52 Long term (current) use of systemic steroids; Z79.899 Other long term (current) drug therapy
CPT/HCPCS: 36415; 93005; 80053; 85652; 83735; 84484; 85025; 85610; 85730; 86140; 71046; 99285; 96374; J2270

== ENCOUNTER → 2022-10-07 | Outpatient (CLI) | payer BC ==
[2022-10-08 00:02] LABS: Basophils # (A) 0 X 10*3/uL (0.00-0.10); Basophils % (A) 0 %; Eosinophils # (A) 0.03 X 10*3/uL (0.04-0.35); Eosinophils % (A) 0.7 %; HCT 37.7 % (37.2-46.3); HGB 13.2 g/dL (12.0-15.0); Immature Grans, Automated 0.2 %; Lymphocytes # (A) 1.06 X 10*3/uL (0.90-5.00); Lymphocytes % (A) 25.9 %; MCH 30.5 pg (27.0-32.0); MCV 87.1 fL (80.0-97.0); Monocytes # (A) 0.33 X 10*3/uL (0.20-1.00); NRBC Per 100 WBC 0 /100 WBCS (0.0-0.0); Neutrophils # (A) 2.67 X 10*3/uL (1.80-7.70); Neutrophils % (A) 65.2 %; Platelet Count 177 X 10*3/uL (140-440); RBC 4.33 X 10*6/uL (4.10-5.20); RDW 11.8 % (11.5-14.5)
== END | disposition home or self-care (01) ==
LOC: LABWHC1 14:44
PROVIDERS: ATTEND Internal Medicine
DX: D84.9 Immunodeficiency, unspecified (principal); M32.9 Systemic lupus erythematosus, unspecified
CPT/HCPCS: 36415; 85025

== ENCOUNTER → 2022-12-11 | Outpatient (CLI) | payer BC ==
[2022-12-11 22:52] LABS: Basophils # (A) 0.01 X 10*3/uL (0.00-0.10); Basophils % (A) 0.2 %; Eosinophils # (A) 0.08 X 10*3/uL (0.04-0.35); Eosinophils % (A) 1.8 %; HCT 38.1 % (37.2-46.3); HGB 12.8 g/dL (12.0-15.0); Immature Grans, Automated 0.2 %; Lymphocytes # (A) 1.06 X 10*3/uL (0.90-5.00); Lymphocytes % (A) 24.3 %; MCHC 33.6 g/dL (32.0-37.0); MCV 89.2 fL (80.0-97.0); Mean Platelet Volume 9.8 fL (9.5-12.2); Monocytes # (A) 0.36 X 10*3/uL (0.20-1.00); Monocytes % (A) 8.2 %; NRBC Per 100 WBC 0 /100 WBCS (0.0-0.0); Neutrophils # (A) 2.85 X 10*3/uL (1.80-7.70); Neutrophils % (A) 65.3 %; Platelet Count 194 X 10*3/uL (140-440); RBC 4.27 X 10*6/uL (4.10-5.20); RDW 11.9 % (11.5-14.5); WBC 4.37 X 10*3/uL (4.50-10.00)
[2022-12-11 23:23] LABS: African American GFR (CKD) 140.7 (60.0-200.0); Albumin 4.2 g/dL (3.8-4.9); Albumin/Globulin Ratio 1.88 (1.60-3.17); Anion Gap 10.2 mmol/L (10.00-18.00); BUN/Creat Ratio 16.47 Ratio (12.00-20.00); Calcium 9.8 mg/dL (8.7-10.3); Globulin 2.3 g/dL (1.6-3.3); Non-African American GFR(CKD) 121.4 (60.0-200.0); Potassium 3.6 mmol/L (3.5-5.5); Total Bilirubin 0.2 mg/dL (0.30-1.20); Total Protein 6.5 g/dL (6.2-8.2)
== END | disposition home or self-care (01) ==
LOC: LABWHC1 15:39
PROVIDERS: ATTEND Internal Medicine Rheumatology
DX: M32.9 Systemic lupus erythematosus, unspecified (principal)
CPT/HCPCS: 36415; 80053; 85025

== ENCOUNTER → 2023-04-08 | Outpatient (CLI) | payer BC | END | disposition home or self-care (01) | LOC: LABWHC1 09:55 | PROVIDERS: ATTEND Internal Medicine Rheumatology | DX: Z53.9 Procedure and treatment not carried out, unspecified reason (principal) ==

== ENCOUNTER → 2024-05-09 | Outpatient (CLI) | payer BC ==
[2024-05-09 17:21] LABS: Creatinine,Urine Random 33.4 mg/dL; Protein/Creatinine Ratio,Urine 0.329
[2024-05-09 19:21] LABS: Basophils # (A) 0.01 X 10*3/uL (0.00-0.10); Basophils % (A) 0.1 %; Eosinophils # (A) 0.03 X 10*3/uL (0.04-0.35); Eosinophils % (A) 0.4 %; HCT 36.3 % (37.2-46.3); HGB 12.4 g/dL (12.0-15.0); Lymphocytes # (A) 0.75 X 10*3/uL (0.90-5.00); MCH 30.7 pg (27.0-32.0); MCHC 34.2 g/dL (32.0-37.0); MCV 89.9 FL (80.0-97.0); Mean Platelet Volume 10.5 FL (9.5-12.2); Monocytes # (A) 0.43 X 10*3/uL (0.20-1.00); Monocytes % (A) 5.1 %; NRBC Per 100 WBC 0 X 10*3/uL (0.00-0.01); Neutrophils # (A) 7.11 X 10*3/uL (1.80-7.70); Neutrophils % (A) 84.9 %; Platelet Count 220 X 10*3/uL (140-440); RBC 4.04 X 10*6/uL (4.10-5.20); RDW 13.1 % (11.5-14.5); WBC 8.37 X 10*3/uL (4.50-10.00)
[2024-05-09 20:04] LABS: ALT 17 U/L (8-44); AST 22 U/L (13-35); Albumin 3.7 g/dL (3.8-4.9); Albumin/Globulin Ratio 1.48 Ratio (1.60-3.17); Alkaline Phosphatase 154 U/L (41-126); Blood Urea Nitrogen 5.6 mg/dL (9.0-27.0); Calcium 9.8 mg/dL (8.7-10.3); Carbon Dioxide 21.6 mmol/L (21.6-31.8); Chloride 100 mmol/L (96-109); Globulin 2.5 g/dL (1.6-3.3); Glucose 71 mg/dL (70-110); Potassium 3.9 mmol/L (3.5-5.5); Sodium 133 mmol/L (135-145); Total Bilirubin <0.2 mg/dL (0.3-1.2); Total Protein 6.2 g/dL (6.2-8.2)
[2024-05-10 01:39] LABS: DNA Double-Stranded POSITIVE
[2024-05-10 02:20] LABS: Appearance,Urine Clear (Clear); Bilirubin,Urine Negative (Negative); Blood,Urine Negative (Negative); Color,Urine Yellow (Yellow); Ketones,Urine Trace (Negative); Nitrite,Urine Negative (Negative); Specific Gravity,Urine 1.007 (1.001-1.030); Urobilinogen,Urine 0.2 E.U./DL
[2024-05-10 03:52] LABS: Bacteria,Urine Trace (None Seen)
== END | disposition home or self-care (01) ==
LOC: LABWHC1 14:42
PROVIDERS: ATTEND Internal Medicine Rheumatology
DX: M32.9 Systemic lupus erythematosus, unspecified (principal)
CPT/HCPCS: 36415; 80053; 81001; 82570; 84156; 85025; 86160; 86225

== ENCOUNTER 2024-06-13 09:49 | Inpatient (IN) | payer BC ==
[2024-06-13] MEDS ORDERED: METHYLERGONOVINE 0.2 MG/ML 1 ML AMP IM PRN (10:17)
[2024-06-13] MEDS ORDERED: TRANEXAMIC 1,000 MG/100ML-NACL 1,000 MG in EMPTY BAG 1 BAG IV PRN (10:17)
[2024-06-13] MEDS ORDERED: OXYTOCIN 10 UNIT/ML 1 ML VIAL IM PRN (10:17)
[2024-06-13] MEDS ORDERED: miSOPROStoL 200 MCG TAB PO PRN (10:17)
[2024-06-13] MEDS ORDERED: CARBOPROST TROMETHAMINE 250 MCG/ML 1 ML AMP IM PRN (10:17)
[2024-06-13] MEDS: LACTATED RINGERS 1,000 ML IV SCH (10:30)
[2024-06-13] MEDS ORDERED: OXYTOCIN 30 UNITS/500 ML NS 30 UNIT in SALINE 1 500ML.BAG IV SCH (10:30)
[2024-06-13 10:32] LABS: Basophils % (A) 0 %; Eosinophils # (A) 0.1 k/uL (0-0.7); Eosinophils % (A) 1 %; HGB 12.7 gm/dL (11.4-16.0); Lymphocytes # (A) 0.8 k/uL (1.0-4.8); Lymphocytes % (A) 10 %; MCH 32.3 pg (25.0-35.0); MCHC 35.1 g/dL (31.0-37.0); MCV 92.1 fL (80.0-100.0); Mean Platelet Volume 7.3; Monocytes # (A) 0.3 k/uL (0-1.0); Monocytes % (A) 4 %; Neutrophils # (A) 6.7 k/uL (1.3-7.7); Neutrophils % (A) 85 %; Platelet Count 222 k/uL (150-450); RBC 3.91 m/uL (3.80-5.40); RDW 13.1 % (11.5-15.5)
[2024-06-13] MEDS: CITRIC ACID-SODIUM CITRATE 15 ML CUP PO ONE (11:21)
[2024-06-13] MEDS ORDERED: KETOROLAC 15 MG/ML 1 ML VIAL ONE (12:01)
[2024-06-13] MEDS ORDERED: MORPHINE SULFATE (PF) 0.3 MG/0.3 ML SYR ONE (12:01)
[2024-06-13] MEDS ORDERED: NALBUPHINE 10 MG/ML (10 ML MDV) ONE (12:01)
[2024-06-13] MEDS ORDERED: OXYTOCIN 30 UNITS/500 ML NS BAG IV ONE (12:01)
[2024-06-13] MEDS ORDERED: ONDANSETRON 4 MG/2 ML VIAL ONE (12:01)
[2024-06-13] MEDS ORDERED: ONDANSETRON 4 MG/2 ML VIAL IVP PRN (12:41)
[2024-06-13] MEDS ORDERED: diphenhydrAMINE 50 MG/ML 1 ML VIAL IVP PRN ×3 (12:41→12:55)
[2024-06-13] MEDS ORDERED: NALOXONE 0.4 MG/ML 1 ML VIAL IV PRN ×2 (12:41→12:55)
[2024-06-13] MEDS ORDERED: NALBUPHINE 10 MG/ML (10 ML MDV) IV PRN (12:41)
--- NOTE | 2024-06-13 12:50 | P.HPOB ---
History of Present Illness H&P Date: 06/13/24 Chief Complaint: , history of previous low transverse section This is a 29 year old 2 para 1001 woman who is admitted at 38-5/7 weeks gestation for planned repeat low transverse section. She declined trial of labor. Her has been complicated by diagnosis of maternal lupus. She has been monitored extensively antenatally with a maternal medicine and her group chief operator. She's had an unremarkable otherwise. All testing parameters have been within normal limits. She also has a history of pericarditis prior to and maternal and echocardiograms were within normal limits. Obstetric history: 2019 Primary low transverse section at term for malpresentation. Laboratory data: Blood type O+, antibody screen negative, rubella immune, VDRL nonreactive, hepatitis B and hepatitis C screening negative, gonorrhea and clinic cultures negative, HIV negative, glucose tolerance testing 1 hour abnormal, 3 hour within normal limits, group B strep negative, past medical history Lupus, pericarditis, depression next past surgical history section 2019 Review of Systems All systems: negative Past Medical History Past Medical History: No Reported History Additional Past Medical History / Comment(s): lupus History of Any Multi-Drug Resistant Organisms: None Reported Past Surgical History: Section Additional Past Surgical History / Comment(s): 10/30/20 , wisdom teeth removal. Past Anesthesia/Blood Transfusion Reactions: No Reported Reaction Past Psychological History: No Psychological Hx Reported Additional Psychological History / Comment(s): Patient feeling anxious and depressed since of child. Smoking Status: Never smoker Past Alcohol Use History: None Reported Past Drug Use History: None Reported - Past Family History Mother Family Medical History: No Reported History Father Family Medical History: Cancer Additional Family Medical History / Comment(s): testicular cancer. Medications and Allergies Home Medications Medication Instructions Recorded Confirmed Type Belimumab [Benlysta] 1 mg IM ONCE 06/13/24 06/13/24 History Hydroxychloroquine Sulfate 200 mg PO BID 06/13/24 06/13/24 History [Plaquenil] Vit No.179/Iron/Folic 1 tab PO ONCE 06/13/24 06/13/24 History [ Tablet] Allergies Allergy/AdvReac Type Severity Reaction Status Date / Time Sulfa (Sulfonamide AdvReac Nausea & Verified 06/13/24 10:13 Antibiotics) Vomiting Exam Vital Signs Temp Pulse Resp BP Pulse Ox 06/13/24 10:11 98.3 F 95 16 131/73 99 Intake and Output 06/12/24 06/13/24 06/13/24 22:59 06:59 14:59 Other: Weight 90.718 kg Targeted physical exam is performed. HEENT exam is unremarkable and her breathing is unlabored. Heart is a regular rate and rhythm. Abdomen is gravid, soft and nontender with term fundal height. She has trace lower extremity edema. heart tones are category 1 by external monitoring. Results Result Diagrams: 06/13/24 10:20 Abnormal Lab Results - Last 24 Hours (Table) 06/13/24 Range/Units 10:20 Lymphocytes # 0.8 L (1.0-4.8) k/uL Assessment and Plan (1) History of Current Visit: Yes Status: Acute Code(s): Z98.891 - HISTORY OF UTERINE SCAR FROM PREVIOUS SURGERY SNOMED Code(s): 518884809 (2) Lupus Current Visit: Yes Status: Acute Code(s): M32.9 - SYSTEMIC LUPUS ERYTHEMATOSUS, UNSPECIFIED SNOMED Code(s): 838814546 Plan: 29-year-old 2 para 1001 woman who is admitted for planned repeat low transverse section. She is declines trial of labor. Risks benefits and alternatives have been reviewed extensively with the patient in the hospital . Risks include but are not limited to bleeding, transfusion, infection, damage to bowel, bladder, ureters, and/or other maternal structures. Anesthesia Occasions DVT and or PE. Implications for future pregnancies reviewed. Consent has been obtained. status is currently reassuring by external monitoring. She is group B strep negative and Rh+.
[2024-06-13] MEDS ORDERED: diphenhydrAMINE 50 MG CAP PO PRN (12:55)
[2024-06-13] MEDS ORDERED: ZOLPIDEM 5 MG TAB PO PRN (12:55)
[2024-06-13] MEDS ORDERED: METOCLOPRAMIDE 5 MG/ML 2 ML VIAL IVP PRN (12:55)
[2024-06-13] MEDS ORDERED: HYDROmorphone 2 MG TAB PO PRN (12:55)
[2024-06-13] MEDS ORDERED: diphenhydrAMINE 25 MG CAP PO PRN (12:55)
--- NOTE | 2024-06-13 12:55 | P.OP ---
Date of Procedure: 06/13/24 Preoperative Diagnosis: Term at 38-5/7 weeks History of maternal lupus History of previous low transverse section, declines trial of labor Postoperative Diagnosis: Uterine at 38-5/7 weeks gestation History of maternal lupus History of previous low transverse section Thin low uterine segment Procedure(s) Performed: Repeat low transverse section Anesthesia: spinal Surgeon: Shawna Harmon [place]ar Alarm Installer #1: Shraddha Pena Estimated Blood Loss (ml): 360 IV fluids (ml): 700 Urine output (ml): 350 Pathology: other (Placenta) Condition: stable Disposition: floor Indications for Procedure: History of previous low transverse section Operative Findings: Extremely thin, almost transparent low uterine segment. Male in the vertex occiput transverse position with Apgars of 9 at 1 minute and 9 at 5 minutes weighing 7 lbs. 8 oz., 3410 g, intact, three-vessel cord placenta, normal-appearing bilateral fallopian tubes, ovaries and uterus. Description of Procedure: After the patient was met preoperatively and all questions were answered, she was taken to the operating room where spinal anesthetic was administered without incident. She was then positioned, prepped and draped in the dorsal supine position with a leftward tilt. Gonzalez catheter was placed. After anesthetic was confirmed adequate, a low transverse skin incision was made following the pre- existing scar. This was carried down to the underlying fascia both sharply and with the electrocautery. The fascia was then incised in the midline and extended bilaterally with the Frost scissors. The superior aspect of the fascial incision was elevated and the underlying rectus muscles dissected off sharply and with the electrocautery. The inferior aspect of the fascial incision was also elevated and the underlying rectus muscles dissected off sharply. The muscles were adherent in the midline. These were bluntly and the peritoneum was tented up with hemostats. The peritoneum was entered sharply with the Metzenbaum scissors. The peritoneal incision was extended inferiorly and superiorly with good visualization of the bladder. The bladder blade was placed. Low uterine segment was extremely thin, translucent. A low transverse uterine incision was then made sharply and carried down to the underlying amniotic membranes. Membranes were ruptured and clear fluid was noted. The uterine incision was extended bilaterally bluntly. The infant's head was delivered from the incision without difficulty. The nose and mouth were bulb suctioned. The rest of the was delivered onto the field without difficulty. And cut and the was taken to the warmer. An intact, three- vessel cord placenta was then manually removed and the uterus was exteriorized. The uterus was cleared of all clot and debris. The uterine incision was delineated with Aguillon clamps. The uterine incision was then closed in a running locked fashion with 0 Vicryl suture. Additional [id number] sutures were placed where necessary along the incision for hemostasis. A second imbricating layer of the same was placed. The uterus was then returned to the abdomen and the gutters were cleared of all clot and debris. The uterine incision was reinspected and Bovie electrocautery was utilized were necessary for hemostasis. The fascial edges, peritoneal edges and rectus muscles were inspected and Bovie electrocautery utilized were necessary for hemostasis. The fascia was then closed in a running fashion with 0 Vicryl suture. The subcuticular tissue was copiously suction irrigated and Bovie electrocautery utilized were necessary for hemostasis. 3-0 Vicryl suture was utilized to reapproximate the subcuticular tissue. The skin was then closed in a subcutaneous fashion with 4-0 Vicryl suture. All counts reported to me as correct by the operating room staff at the end of the procedure. The patient received antibiotics preoperatively and Pitocin following cord clamp. Mother and were both transported from the room in stable condition.
[2024-06-13] MEDS: ACETAMINOPHEN TAB 500 MG TAB PO SCH (16:04)
[2024-06-13] MEDS ORDERED: ACETAMINOPHEN IV (For NPO) 1,000 MG in EMPTY BAG 1 BAG IVPB PRN (18:00)
[2024-06-13] MEDS: IBUPROFEN 600 MG TAB PO SCH (19:01)
[2024-06-13] MEDS: SENNOSIDES-DOCUSATE SODIUM 1 EACH TAB PO SCH (21:42)
[2024-06-14] MEDS ORDERED: IBUPROFEN IV 800 MG in SODIUM CHLORIDE 0.9% 250 ML IV PRN
[2024-06-14 05:39] LABS: Basophils % (A) 0 %; Eosinophils # (A) 0.1 k/uL (0-0.7); Eosinophils % (A) 1 %; HCT 30.9 % (34.0-46.0); HGB 10.3 gm/dL (11.4-16.0); Lymphocytes # (A) 0.9 k/uL (1.0-4.8); Lymphocytes % (A) 14 %; MCH 30.8 pg (25.0-35.0); MCHC 33.3 g/dL (31.0-37.0); MCV 92.6 fL (80.0-100.0); Mean Platelet Volume 7.3; Monocytes # (A) 0.3 k/uL (0-1.0); Monocytes % (A) 4 %; Neutrophils % (A) 80 %; Platelet Count 174 k/uL (150-450); RBC 3.34 m/uL (3.80-5.40); RDW 13.1 % (11.5-15.5); WBC 6.2 k/uL (3.8-10.6)
--- NOTE | 2024-06-14 12:00 | P.PN ---
Progress Note - Text Progress Note Date: 06/14/24 Postoperative day 1 status post section under spinal anesthesia, and intrathecal morphine given for postoperative analgesia, patient doing well, there is no anesthesia related complications, Patient had no headache, vital signs stable , Assessment and plan= postop day 1 status post , doing well there is no anesthesia related complication.
--- NOTE | 2024-06-14 12:46 | P.PNOBGPC ---
Subjective - Subjective Principal diagnosis: Postoperative day 1 Patient reports: Reports appetite normal, Reports voiding normally, Reports pain well controlled, Reports ambulating normally [place]: doing well, nursing well Objective - Vital Signs Latest vital signs: Vital Signs Temp Pulse Resp BP Pulse Ox 06/14/24 11:00 17 06/14/24 10:00 99 06/14/24 09:00 17 06/14/24 08:00 98.4 F 71 17 99/59 99 06/14/24 06:49 18 06/14/24 04:55 17 06/14/24 03:00 16 06/14/24 01:32 98.7 F 74 17 99/61 97 06/14/24 01:00 16 96 06/13/24 22:55 17 98 06/13/24 20:47 17 98 06/13/24 18:25 16 06/13/24 18:24 98.2 F 74 16 110/55 06/13/24 18:22 97 06/13/24 17:00 16 06/13/24 15:25 16 98 06/13/24 14:50 97.6 F 71 16 116/70 98 06/13/24 14:35 73 16 110/68 98 06/13/24 14:20 67 16 113/68 98 06/13/24 14:05 69 16 114/68 98 06/13/24 13:50 97.9 F 66 16 106/68 97 06/13/24 13:41 16 97 06/13/24 13:35 65 16 108/67 97 06/13/24 13:20 70 16 103/59 98 06/13/24 13:05 71 17 105/60 97 06/13/24 12:50 96.4 F L 74 17 102/58 98 Intake and Output 06/13/24 06/14/24 06/14/24 22:59 06:59 14:59 Output Total 448 300 Balance -448 -300 Output: Urine 300 Output, Quantitative 448 Blood Loss Other: # Voids 1 - Exam Extremities: Present: normal. Absent: tenderness Abdomen: Present: normal appearance, soft. Absent: tenderness Incision: Present: normal, dry, intact. Absent: erythematous Uterus: Present: normal, firm - Labs Labs: Abnormal Lab Results - Last 24 Hours (Table) 06/14/24 Range/Units 05:21 RBC 3.34 L (3.80-5.40) m/uL Hgb 10.3 L (11.4-16.0) gm/dL Hct 30.9 L (34.0-46.0) % Lymphocytes # 0.9 L (1.0-4.8) k/uL Assessment and Plan (1) History of Current Visit: Yes Status: Acute Code(s): Z98.891 - HISTORY OF UTERINE SCAR FROM PREVIOUS SURGERY SNOMED Code(s): 377562990 (2) Lupus Current Visit: Yes Status: Acute Code(s): M32.9 - SYSTEMIC LUPUS ERYTHEMATOSUS, UNSPECIFIED SNOMED Code(s): 885447858 Plan: Postop day 1 status post repeat low transverse section. Recovering well. Routine care. Anticipate discharge home tomorrow.
[2024-06-14] MEDS: LACTATED RINGERS 1,000 ML IV ONE (19:40)
[2024-06-15 00:51] VITALS: TEMP 98.1
--- NOTE | 2024-06-15 08:28 | P.PNOBGPC ---
Subjective - Subjective Principal diagnosis: Postop day #2, status post repeat section Interval history: Patient is feeling well this morning. She is ambulating and voiding without difficulty. She states her pain is well-controlled. She is breast and bottlefeeding. She denies concerns and would like discharge home later today. Patient reports: Reports appetite normal, Reports voiding normally, Reports pain well controlled, Reports ambulating normally [place]: doing well Objective - Vital Signs Latest vital signs: Vital Signs Temp Pulse Resp BP Pulse Ox 06/15/24 00:49 98.1 F 78 16 132/72 97 06/14/24 19:00 16 06/14/24 18:00 100 06/14/24 17:00 17 06/14/24 15:48 98.2 F 81 17 114/72 98 06/14/24 15:00 17 06/14/24 14:00 99 06/14/24 13:00 17 06/14/24 11:00 17 06/14/24 10:00 99 06/14/24 09:00 17 Intake and Output 06/14/24 06/15/24 06/15/24 22:59 06:59 14:59 Other: # Voids 1 2 # Bowel Movements 2 - Exam Extremities: Present: normal, edema Abdomen: Present: normal appearance Incision: Present: normal, dry, intact Uterus: Present: normal, firm Assessment and Plan (1) Term Current Visit: Yes Status: Acute Code(s): Z34.90 - ENCNTR FOR SUPRVSN OF NORMAL , UNSP, UNSP TRIMESTER SNOMED Code(s): 12621871 (2) History of Current Visit: Yes Status: Acute Code(s): Z98.891 - HISTORY OF UTERINE SCAR FROM PREVIOUS SURGERY SNOMED Code(s): 254781787 Plan: Patient is doing well postoperatively. Plan discharge home later today. Discharge instructions are reviewed. Patient is to follow-up in 2 weeks for routine postoperative check. [id number] ibuprofen 600 mg, 3 tablets every 6 hours as needed for pain.
--- NOTE | 2024-06-15 09:01 | P.DS ---
Providers Date of admission: 06/13/24 09:49 Expected date of discharge: 06/15/24 Attending physician: Shawna Harmon Primary care physician: Stated None - Discharge Diagnosis(es) (1) History of Current Visit: Yes Status: Acute (2) Lupus Current Visit: Yes Status: Acute Hospital Course: 29 year old G2 now P2 admitted for planned repeat LTCS, declined trial of labor. complicated by maternal Lupus that was well controlled and monitored but [facility] and her honey extractor. testing all reassuring. Following admission she underwent an uncomplicated repeat LTCS, findings significant for very thin lower uterine segment. See op not for detail. Her post course was unremarkable. By POD1 she was ambulating and voiding, tolerating general diet and voind with the catheter out. CBC was normal. By POD 2 she continued to do well with well healing incision, stable vital signs and good pain control. SHe was therefore discharged home in stable condition with routine instructions for care and follow up. She will restart her Ben[place]a in 2 weeks. Procedures: repeat LTCS Patient Condition at Discharge: Good Plan - Discharge Summary New Discharge Prescriptions: New Sennosides-Docusate Sodium [Senokot-S] 2 each PO BID@0800,2000 tab Ibuprofen [Motrin] 600 mg PO Q6H tab Acetaminophen Tab [Tylenol] 1,000 mg PO Q6H tab Continue Vit No.179/Iron/Folic [ Tablet] 1 tab PO ONCE Hydroxychloroquine Sulfate [Plaquenil] 200 mg PO BID Belimumab [Benlysta] 1 mg IM ONCE Discharge Medication List Belimumab [Benlysta] 1 mg IM ONCE 06/13/24 [History] Hydroxychloroquine Sulfate [Plaquenil] 200 mg PO BID 06/13/24 [History] Vit No.179/Iron/Folic [ Tablet] 1 tab PO ONCE 06/13/24 [History] Acetaminophen Tab [Tylenol] 1,000 mg PO Q6H tab 06/15/24 [Rx] Ibuprofen [Motrin] 600 mg PO Q6H tab 06/15/24 [Rx] Sennosides-Docusate Sodium [Senokot-S] 2 each PO BID@0800,2000 tab 06/15/24 [Rx] Follow up Appointment(s)/Referral(s): Shawna Harmon MD [STAFF PHYSICIAN] - 06/27/24 1:15 pm (Post Appointment 07-25-2024 at 1:45pm) Discharge Disposition: HOME SELF-CARE
[2024-06-15 09:46] VITALS: BP 130/83; PULSE 85; RESP 14
== END 2024-06-15 13:25 | disposition home or self-care (01) | DRG 788 ==
LOC: 4FBP 09:49
PROVIDERS: ADMIT Obstetrics & Gynecology; ATTEND Obstetrics & Gynecology
PROC: 10D00Z1 Extraction of Products of Conception, Low, Open Approach (ICD-10-PCS; principal; 2024-06-13 12:00)
DX: O34.211 Maternal care for low transverse scar from previous cesarean delivery (principal); O99.892 Other specified diseases and conditions complicating childbirth; M32.9 Systemic lupus erythematosus, unspecified; O99.344 Other mental disorders complicating childbirth; F41.9 Anxiety disorder, unspecified; F32.A Depression, unspecified; O34.593 Maternal care for other abnormalities of gravid uterus, third trimester; Z79.899 Other long term (current) drug therapy; Z88.2 Allergy status to sulfonamides; Z28.310 Unvaccinated for COVID-19; Z3A.38 38 weeks gestation of pregnancy; Z37.0 Single live birth
CPT/HCPCS: 85025; 86850; 86900; 86901

== ENCOUNTER 2024-08-26 14:27 | Emergency (ER) | payer BC ==
--- NOTE | 2024-08-26 16:07 | ED ---
General Adult HPI - General Chief complaint: Abdominal Pain Stated complaint: Abdominal Pain Time Seen by Provider: 08/26/24 14:46 Source: patient, RN notes reviewed Mode of arrival: ambulatory Limitations: no limitations - History of Present Illness Initial comments: This is a 29-year-old female presenting for left lower abdominal pain that radiates to left flank and mid back x 1 day. Patient endorses difficulty urinating and increased frequency of urination along with bladder pressure. Patient denies pain with urination, fever or chills. Patient endorses use of ibuprofen with minimal relief. Patient endorses history of UTI last occurring several years ago. Patient denies history of kidney stones. Onset/Timin -: days(s) - Related Data Previous Rx's Medication Instructions Recorded Levofloxacin [Levaquin] 750 mg PO DAILY 1 Days #10 tab 08/26/24 Allergies Allergy/AdvReac Type Severity Reaction Status Date / Time Sulfa (Sulfonamide Allergy Nausea & Verified 08/26/24 14:41 Antibiotics) Vomiting Review of Systems ROS Statement: Those systems with pertinent positive or pertinent negative responses have been documented in the HPI. ROS Other: All systems not noted in ROS Statement are negative. Past Medical History Additional Past Medical History / Comment(s): Lupus Past Surgical History: Section Additional Past Surgical History / Comment(s): 06/13/24 Past Psychological History: Anxiety Smoking Status: Never smoker Past Alcohol Use History: None Reported Past Drug Use History: None Reported General Exam Limitations: no limitations General appearance: alert, in no apparent distress Head exam: Present: atraumatic, normocephalic, normal inspection Eye exam: Present: normal appearance, PERRL, EOMI. Absent: scleral icterus, conjunctival injection, periorbital swelling ENT exam: Present: normal exam, mucous membranes moist Neck exam: Present: normal inspection. Absent: tenderness, meningismus, lymphadenopathy Respiratory exam: Present: normal lung sounds bilaterally. Absent: respiratory distress, wheezes, rales, rhonchi, stridor Cardiovascular Exam: Present: regular rate, normal rhythm, normal heart sounds. Absent: systolic murmur, diastolic murmur, rubs, gallop, clicks GI/Abdominal exam: Present: soft, normal bowel sounds. Absent: distended, tenderness, guarding, rebound, rigid Extremities exam: Present: normal inspection, full ROM, normal capillary refill. Absent: tenderness, pedal edema, joint swelling, calf tenderness Back exam: Present: normal inspection, CVA tenderness (L) Neurological exam: Present: alert, oriented X3, CN II-XII intact Psychiatric exam: Present: normal affect, normal mood Skin exam: Present: warm, dry, intact, normal color. Absent: rash Course Vital Signs 08/26/24 14:41 Temperature 97.6 F Pulse Rate 79 Respiratory 18 Rate Blood Pressure 127/86 O2 Sat by Pulse 98 Oximetry Medical Decision Making - Medical Decision Making Was pt. sent in by a medical professional or institution (, PA, ELEVATED GUARD, urgent care, hospital, or usp...) When possible be specific @ -No Did you speak to anyone other than the patient for history (EMS, parent, family, police, friend...)? What history was obtained from this source @ -No Did you review nursing and triage notes (agree or disagree)? Why? @ -I reviewed and agree with nursing and triage notes Were old charts reviewed (outside hosp., previous admission, EMS record, old EKG, old radiological studies, urgent care reports/EKG's, usp records)? Report findings @ -No old charts were reviewed Differential Diagnosis (chest pain, altered mental status, abdominal pain women, abdominal pain men, vaginal bleeding, weakness, fever, dyspnea, syncope, headache, dizziness, GI bleed, back pain, seizure, CVA, palpatations, mental health, musculoskeletal)? @ -Differential Abdominal Pain Women: Appendicitis, Cholecystitis, diverticulosis, ischemic bowel, pancreatitis, hepatitis, UTI, gastroenteritis, AAA, incarcerated hernia, bowel obstruction, constipation, inflammatory bowel, hepatitis, peptic ulcer disease, splenic infarction, perforated viscus, vulvitis, ovarian torsion, PID, kidney stone, placenta abruption, this is not meant to be an all-inclusive list EKG interpreted by me (3pts min.). @ -Not done X-rays interpreted by me (1pt min.). @ -None done CT interpreted by me (1pt min.). @ -None done U/S interpreted by me (1pt. min.). @ -None done What testing was considered but not performed or refused? (CT, X-rays, U/S, labs)? Why? @ -None What meds were considered but not given or refused? Why? @ -None Did you discuss the management of the patient with other professionals (professionals i.e. , PA, ELEVATED GUARD, lab, RT, psych nurse, social work supervisor, veneer sheet repairer, teacher, staff submarine warfare officer, case technician)? Give summary @ -No Was smoking cessation discussed for >3mins.? @ -No Was critical care preformed (if so, how long)? @ -No Were there social determinants of health that impacted care today? How? (Homelessness, low income, unemployed, alcoholism, drug addiction, transportation, low edu. Level, literacy, decrease access to med. care, alf, rehab)? @ -No Was there de-escalation of care discussed even if they declined (Discuss DNR or withdrawal of care, Hospice)? DNR status @ -No What co-morbidities impacted this encounter? (DM, HTN, Smoking, COPD, CAD, Cancer, CVA, ARF, Chemo, Hep., AIDS, mental health diagnosis, sleep apnea, morbid obesity)? @ -None Was patient admitted / discharged? Hospital course, mention meds given and route, prescriptions, significant lab abnormalities, going to OR and other pertinent info. @ -Discharged. With some difficulty, patient able to leave UA. UA shows leukocytes and bacteria. Rocephin IM given and Levaquin sent to pharmacy. Undiagnosed new problem with uncertain prognosis? @ -No Drug Therapy requiring intensive monitoring for toxicity (Heparin, Nitro, Insulin, Cardizem)? @ -No Were any procedures done? @ -No Diagnosis/symptom? @ -UTI, pyelonephritis Acute, or Chronic, or Acute on Chronic? @ -Acute Uncomplicated (without systemic symptoms) or Complicated (systemic symptoms)? @ -Uncomplicated Side effects of treatment? @ -No Exacerbation, Progression, or Severe Exacerbation? @ -No Poses a threat to life or bodily function? How? (Chest pain, [place], [place], pneumonia, PE, COPD, DKA, ARF, appy, cholecystitis, CVA, Diverticulitis, Homicidal, Suicidal, threat to staff... and all critical care pts) @ -No - Lab Data Lab Results 08/26/24 Range/Units 16:59 Urine Color Yellow Urine Appearance Clear (Clear) Urine pH 6.5 (5.0-8.0) Ur Specific [place] 1.018 (1.001-1.035) Urine Protein Trace H (Negative) Urine Glucose (UA) Negative (Negative) Urine Ketones Negative (Negative) Urine Blood Trace H (Negative) Urine Nitrite Negative (Negative) Urine Bilirubin Negative (Negative) Urine Urobilinogen <2.0 (<2.0) mg/dL Ur Leukocyte Esterase Small H (Negative) Urine RBC 8 H (0-5) /hpf Urine WBC 2 (0-5) /hpf Ur Squamous Epith Cells 1 (0-4) /hpf Urine Bacteria Rare H (None) /hpf Hyaline Casts 1 (0-2) /lpf Urine Mucus Many H (None) /hpf Disposition Clinical Impression: UTI (urinary tract infection), Pyelonephritis Disposition: HOME SELF-CARE Condition: Good Prescriptions: Levofloxacin [Levaquin] 750 mg PO DAILY 1 Days #10 tab Is patient prescribed a controlled substance at d/c from ED?: No Referrals: Brittney Palafox MD [Primary Care Provider] - 1-2 days Time of Disposition: 17:31
[2024-08-26 17:23] LABS: Appearance,Urine Clear (Clear); Bacteria,Urine Rare /hpf; Bilirubin,Urine Negative (Negative); Blood,Urine Trace (Negative); Color,Urine Yellow; Glucose,Urine (UA) Negative (Negative); Hyaline Casts,Urine 1 /lpf (0-2); Ketones,Urine Negative (Negative); Leukocyte Esterase,Urine Small (Negative); Mucus,Urine Many /hpf; Nitrite,Urine Negative (Negative); PH, Urine 6.5 (5.0-8.0); Protein,Urine Trace (Negative); RBC,Urine 8 /hpf (0-5); Specific Gravity,Urine 1.018 (1.001-1.035); Squamous Epithelial Cell,Urine 1 /hpf (0-4); Urobilinogen,Urine <2.0 mg/dL (<2.0); WBC,Urine 2 /hpf (0-5)
[2024-08-26] MEDS ORDERED: cefTRIAXone 1,000 MG VIAL (IM USE) IM STA (17:24)
[2024-08-26] MEDS: cefTRIAXone IN SWFI 1,000 MG/10 ML SYRINGE IVP STA (17:47)
[2024-08-26 17:52] VITALS: BP 128/87; PULSE 81; RESP 16; TEMP 98.1
== END 2024-08-26 18:10 | disposition home or self-care (01) ==
LOC: MERGE 14:27 → EC 14:27
CPT/HCPCS: 81001; 96374; 99283